=== PATIENT | female | born 1950 | race Caucasian/White ===

== ENCOUNTER 2017-08-11 22:41 | Emergency (ER) | payer OTHER ==
[~2017-08-11] VITALS: Ht 165.1 cm; Wt 125.0 kg
[~2017-08-11 22:41] MED LIST: CIPR-9 PO; FURO1TAB60 PO; GLIP5TAB8 PO; METO1TAB42 PO; SIMV10TA PO; TRAM50TA PO; ZANT150T2 PO
[2017-08-11 22:44] VITALS: BP 190/112; PULSE 98; RESP 16; TEMP 98.2; O2SAT 97
[2017-08-11 23:17] VITALS: BP 143/67; PULSE 92; RESP 22; O2SAT 99
[2017-08-12 00:13] LABS: AUTOMATED NEUTROPHIL # 8.7 TH/MM3 (1.8-7.7); BASOPHIL % 0.3 % (0.0-2.0); EOSINOPHIL % 0.3 % (0.0-4.0); HEMATOCRIT 36.7 % (35.0-46.0); HEMOGLOBIN 12.3 GM/DL (11.6-15.3); LYMPH % 17.5 % (9.0-44.0); LYMPHOCYTE # 2.1 TH/MM3 (1.0-4.8); MEAN CELL VOLUME 87.6 FL (80.0-100.0); MEAN CORPUSCULAR HEMOGLOBIN 29.3 PG (27.0-34.0); MEAN CORPUSCULAR HGB CONC 33.5 % (32.0-36.0); MEAN PLATELET VOLUME 6.7 FL (7.0-11.0); MONO % 8.7 % (0.0-8.0); NEUT % 73.2 % (16.0-70.0); PLATELET COUNT 326 TH/MM3 (150-450); RED BLOOD COUNT 4.19 MIL/MM3 (4.00-5.30); RED CELL DISTRIBUTION WIDTH 14.3 % (11.6-17.2); WHITE BLOOD COUNT 11.8 TH/MM3 (4.0-11.0)
--- NOTE | 2017-08-12 00:26 | PD ---
HPI Chief Complaint: Syncope/Near-Syncope Time Seen by Provider: 23:42 Travel History International Travel<30 days: No Contact w/Intl Traveler<30days: No Traveled to known affect area: No History of Present Illness HPI 67-year-old female complains of generalized malaise and weakness and syncope. Patient states that the symptoms started several days ago. Patient denies any headache. Patient denies any visual change. Patient denies any neck pain. Patient denies any chest pain or shortness of breath. Patient denies abdominal pain. Patient denies any focal weakness or numbness of extremity. Patient denies any history of TIA or CVA. Patient lives in [place]. Patient states that she visited emergency room in [facility] in the past. Patient states that she has history of internal bleeding in the past. Patient states that she was on blood thinner including Coumadin until about 2 weeks ago. PFSH Past Medical History Cardiovascular Problems: Yes (CHF) Diabetes: Yes Patient Takes Glucophage: No Diminished Hearing: No Hypertension: Yes Tetanus Vaccination: Unknown Influenza Vaccination: No Past Surgical History Section: Yes (X2) Cholecystectomy: Yes Social History Alcohol Use: No Tobacco Use: No Substance Use: No Allergies-Medications (Allergen,Severity, Reaction): Coded Allergies: divalproex sodium (Unverified Allergy, Severe, SWELLING, 08/11/17) hydromorphone (Unverified Allergy, Severe, Anaphylaxis, 08/11/17) lithium (Unverified Allergy, Severe, EDEMA, 08/11/17) morphine (Unverified Allergy, Severe, Anaphylaxis, 08/11/17) risperidone (Unverified Allergy, Severe, Swelling, 08/11/17) Reported Meds & Prescriptions Reported Meds & Active Scripts Active Tramadol (Tramadol HCl) 50 Mg Tab 50 Mg PO Q6H PRN Reported Glipizide 5 Mg Tab 5 Mg PO BIDAC Take 30 minutes before a meal Metoprolol Succinate ER 24 HR (Metoprolol Succinate) 25 Mg Tab 25 Mg PO DAILY Zantac (Ranitidine HCl) 150 Mg Tab 150 Mg PO BID Simvastatin 10 Mg Tab 10 Mg PO DAILY Lasix (Furosemide) 40 Mg Tab 40 Mg PO DAILY Review of Systems General / Constitutional: No: Fever Eyes: No: Visual changes HENT: No: Headaches Cardiovascular: No: Chest Pain or Discomfort Respiratory: No: Shortness of Breath Gastrointestinal: No: Abdominal Pain Genitourinary: No: Dysuria Musculoskeletal: No: Pain Skin: No Rash Neurologic: No: Weakness Psychiatric: No: Depression Endocrine: No: Polydipsia Hematologic/Lymphatic: No: Easy Bruising Physical Exam Narrative GENERAL: Well-nourished, well-developed patient. SKIN: Focused skin assessment warm/dry. HEAD: Normocephalic. EYES: No scleral icterus. No injection or drainage. NECK: Supple, trachea midline. No JVD or lymphadenopathy. CARDIOVASCULAR: Regular rate and rhythm without murmurs, gallops, or rubs. RESPIRATORY: Breath sounds equal bilaterally. No accessory muscle use. GASTROINTESTINAL: Abdomen soft, non-tender, nondistended. MUSCULOSKELETAL: No cyanosis, or edema. BACK: Nontender without obvious deformity. No CVA tenderness. Neurologic exam normal. Data Data Last Documented VS Vital Signs Date Time Temp Pulse Resp B/P (MAP) Pulse Ox O2 Delivery O2 Flow Rate FiO2 08/12/17 02:03 89 20 136/68 (90) 99 Room Air 08/11/17 22:44 98.2 Orders Orders Electrocardiogram (08/11/17 23:42) Complete Blood Count With Diff (08/11/17 23:42) Comprehensive Metabolic Panel (08/11/17 23:42) Prothrombin Time / Inr (Pt) (08/11/17 23:42) Act Partial Throm Time (Ptt) (08/11/17 23:42) Chest, Single Ap (08/11/17 23:42) Iv Access Insert/Monitor (08/11/17 23:42) Ecg Monitoring (08/11/17 23:42) Oximetry (08/11/17 23:42) Urinalysis - C+S If Indicated (08/11/17 23:42) Us Leg Venous Doppler Bilat (08/12/17 23:42) Ed Discharge Order (08/12/17 03:20) Labs Laboratory Tests Test 08/12/17 00:03 White Blood Count 11.8 TH/MM3 Red Blood Count 4.19 MIL/MM3 Hemoglobin 12.3 GM/DL Hematocrit 36.7 % Mean Corpuscular Volume 87.6 FL Mean Corpuscular Hemoglobin 29.3 PG Mean Corpuscular Hemoglobin Concent 33.5 % Red Cell Distribution Width 14.3 % Platelet Count 326 TH/MM3 Mean Platelet Volume 6.7 FL Neutrophils (%) (Auto) 73.2 % Lymphocytes (%) (Auto) 17.5 % Monocytes (%) (Auto) 8.7 % Eosinophils (%) (Auto) 0.3 % Basophils (%) (Auto) 0.3 % Neutrophils # (Auto) 8.7 TH/MM3 Lymphocytes # (Auto) 2.1 TH/MM3 Monocytes # (Auto) 1.0 TH/MM3 Eosinophils # (Auto) 0.0 TH/MM3 Basophils # (Auto) 0.0 TH/MM3 CBC Comment DIFF FINAL Differential Comment Prothrombin Time 51.3 SEC Prothromb Time International Ratio 5.1 RATIO Activated Partial Thromboplast Time 50.7 SEC Blood Urea Nitrogen 16 MG/DL Creatinine 1.28 MG/DL Random Glucose 128 MG/DL Total Protein 8.0 GM/DL Albumin 3.6 GM/DL Calcium Level 9.2 MG/DL Alkaline Phosphatase 98 U/L Aspartate Amino Transf (AST/SGOT) 24 U/L Alanine Aminotransferase (ALT/SGPT) 26 U/L Total Bilirubin 0.3 MG/DL Sodium Level 144 MEQ/L Potassium Level 3.8 MEQ/L Chloride Level 108 MEQ/L Carbon Dioxide Level 28.8 MEQ/L Anion Gap 7 MEQ/L Estimat Glomerular Filtration Rate 42 ML/MIN [facility] Medical Decision Making Medical Screen Exam Complete: Yes Emergency Medical Condition: Yes Medical Record Reviewed: Yes Interpretation(s) Last Impressions Lower Extremity Ultrasound 08/12/172 Signed Impressions: Service Date/Time: Saturday, August 12, 2017 01:20 - CONCLUSION: Normal examination. Ernie Cardozo Jr., MD Chest X-Ray 08/11/172 Signed Impressions: Service Date/Time: Friday, August 11, 2017 23:56 - CONCLUSION: No acute disease. Ernie Cardozo Jr., MD 3:13 AM. CBC within normal limit. Creatinine 1.28. GFR 42. INR 5.1. Differential Diagnosis Differential diagnosis including vasovagal reaction, dehydration, electrolyte imbalance, viral syndrome, UTI, DVT, PE. Narrative Course 67-year-old female with generalized malaise and weakness and frequent syncope episodes. Patient has history of blood clots of unknown area of the body. Patient was on blood thinner until recently. Patient has been to several Hospital recently. Diagnosis Primary Impression: Generalized weakness Additional Impressions: Hypercoagulable state Syncope Patient Instructions: General Instructions Additional Instructions: No anticoagulation for now. Follow-up local physician for PT/INR check. Follow -up with local physician. Return if worse. Med/Other Pt SpecificInfo: Existing Med Changed Disposition: 01 DISCHARGE HOME Condition: Stable Jose Wolf MD Aug 12, 2017 00:26
[2017-08-12 00:27] LABS: INTERNATIONAL NORMALIZED RATIO 5.1 RATIO; PROTHROMBIN TIME - PATIENT 51.3 SEC (9.8-11.6)
[2017-08-12 00:29] LABS: ALKALINE PHOSPHATASE 98 U/L (45-117); TOTAL BILIRUBIN ADULT 0.3 MG/DL (0.2-1.0)
[2017-08-12 00:42] LABS: ALBUMIN 3.6 GM/DL (3.4-5.0); ALT (GPT) 26 U/L (10-53); AST (GOT) 24 U/L (15-37); BICARBONATE 28.8 MEQ/L (21.0-32.0); BLOOD UREA NITROGEN 16 MG/DL (7-18); CALCIUM 9.2 MG/DL (8.5-10.1); CHLORIDE 108 MEQ/L (98-107); CREATININE 1.28 MG/DL (0.50-1.00); GLOMERULAR FILTRATION RATE 42 ML/MIN (>89); GLUCOSE,RANDOM 128 MG/DL (74-106); SODIUM (NA) 144 MEQ/L (136-145)
--- NOTE | 2017-08-12 00:47 | RADRPT ---
EXAM DATE/TIME: 08/11/2017 23:56 [facility] COMPARISON: No previous studies available for comparison. INDICATIONS : Shortness of breath. MEDICAL HISTORY : Hypertension. Congestive heart failure. Diabetes mellitus type II. SURGICAL HISTORY : Cholecystectomy. section. ENCOUNTER: Initial ACUITY: 1 day PAIN SCORE: 0/10 LOCATION: Bilateral chest FINDINGS: A single view of the chest demonstrates the lungs to be symmetrically aerated without evidence of mas s, infiltrate or effusion. The cardiomediastinal contours are unremarkable. Osseous structures are intact. CONCLUSION: No acute disease. Ernie Cardozo Jr., MD on August 12, 2017 at 0:45 Board Certified Radiologist. This report was verified electronically.
[2017-08-12 00:50] VITALS: BP 125/61; PULSE 82; RESP 24; O2SAT 92
[2017-08-12 02:03] VITALS: BP 136/68; PULSE 89; RESP 20; O2SAT 99
--- NOTE | 2017-08-12 02:05 | RADRPT ---
EXAM DATE/TIME: 08/12/2017 01:20 [facility] COMPARISON: No previous studies available for comparison. INDICATIONS : Bilateral leg swelling. MEDICAL HISTORY : Hypertension. Congestive heart failure. Diabetes. SURGICAL HISTORY : Cholecystectomy. section. ENCOUNTER: Initial ACUITY: 3 days PAIN SCORE: 2/10 LOCATION: Bilateral legs. TECHNIQUE: Venous ultrasound of the left and right leg was performed from the inguinal ligament to the proximal calf. Real-time, color Doppler and spectral tracing, compression and augmentation techniques were us ed. FINDINGS: RIGHT LEG: There is normal compressibility of the deep venous system from the inguinal region to the proximal ca lf. No echogenic clot is seen in the lumen of the common femoral, femoral, popliteal, and posterior tibial veins. There is a normal response of the venous system to proximal and distal augmentation an d respiration. LEFT LEG: There is normal compressibility of the deep venous system from the inguinal region to the proximal ca lf. No echogenic clot is seen in the lumen of the common femoral, femoral, popliteal, and posterior tibial veins. There is a normal response of the venous system to proximal and distal augmentation an d respiration. CONCLUSION: Normal examination. Ernie Cardozo Jr., MD on August 12, 2017 at 2:03 Board Certified Radiologist. This report was verified electronically.
[2017-08-12 04:55] VITALS: BP 138/78; PULSE 79; RESP 18; O2SAT 100
[2017-08-12 04:56] VITALS: O2SAT 100
--- NOTE | 2017-08-12 09:13 | EKG ---
Date Performed: 08/11/2017 Time Performed: 23:23:37 PTAGE: 67 years EKG: Sinus rhythm WITH Premature atrial contractions NONSPECIFIC T-WAVE ABNORMALITY BORDERLINE ECG Compared to prior e lectrocardiogram, Premature atrial contractions are present. PREVIOUS TRACING : 02/14/2007 13.24 DOCTOR: Jason Coelho Interpretating Date/Time 08/12/2017 09:13:05
== END 2017-08-12 04:57 | disposition home or self-care (01) ==
LOC: NEPE 22:41
DX: R53.1 Weakness (principal); D68.59 Other primary thrombophilia; R55 Syncope and collapse; R94.31 Abnormal electrocardiogram [ECG] [EKG]; I11.0 Hypertensive heart disease with heart failure; E11.9 Type 2 diabetes mellitus without complications; R53.81 Other malaise
CPT/HCPCS: 71010; 80053; 85025; 85610; 85730; 93005; 93970

== ENCOUNTER 2017-08-15 16:29 | Inpatient (IN) | payer OTHER, MEDICARE ==
[~2017-08-15] VITALS: Ht 162.6 cm; Wt 127.2 kg
[2017-08-15] MEDS ORDERED: SODIUM CHLOR 0.9% 1000 ML INJ 1,000 ML IV ONE (19:59)
[2017-08-15 20:00] VITALS: BP 148/72; PULSE 118; RESP 20; TEMP 99.4; O2SAT 98
[2017-08-15] MEDS ORDERED: SODIUM CHLORIDE 0.9% FLUSH 10 ML FLUSH IVF PRN (20:00)
--- NOTE | 2017-08-15 20:01 | PD ---
HPI Chief Complaint: Fall Time Seen by Provider: 19:56 Travel History International Travel<30 days: No Contact w/Intl Traveler<30days: No Traveled to known affect area: No History of Present Illness HPI 67-year-old female with history of CHF, hypertension, diabetes, presents emergency department for evaluation. Per patient report, she slid herself out of bed, feeling like she was going to fall, and has been on the floor for the last 3 days. She reports feeling very dry and is requesting something to drink. She does report left shoulder pain with a history of left shoulder rotator cuff injury. No new injury. She denies any chest pain or tightness. No difficulty breathing. No abdominal pain, nausea, vomiting. States she has not been recently ill. In review of the record, patient was seen here on August 11 for generalized weakness. She was discharged home at the time. She has no other symptoms to report. PFSH Past Medical History Cardiovascular Problems: Yes (CHF) Diabetes: Yes Diminished Hearing: No Hypertension: Yes Past Surgical History Section: Yes (X2) Cholecystectomy: Yes Social History Alcohol Use: No Tobacco Use: No Substance Use: No Allergies-Medications (Allergen,Severity, Reaction): Coded Allergies: divalproex sodium (Unverified Allergy, Severe, SWELLING, 08/15/17) hydromorphone (Unverified Allergy, Severe, Anaphylaxis, 08/15/17) lithium (Unverified Allergy, Severe, EDEMA, 08/15/17) morphine (Unverified Allergy, Severe, Anaphylaxis, 08/15/17) risperidone (Unverified Allergy, Severe, Swelling, 08/15/17) Reported Meds & Prescriptions Reported Meds & Active Scripts Active Tramadol (Tramadol HCl) 50 Mg Tab 50 Mg PO Q6H PRN Reported Glipizide 5 Mg Tab 5 Mg PO BIDAC Take 30 minutes before a meal Metoprolol Succinate ER 24 HR (Metoprolol Succinate) 25 Mg Tab 25 Mg PO DAILY Zantac (Ranitidine HCl) 150 Mg Tab 150 Mg PO BID Simvastatin 10 Mg Tab 10 Mg PO DAILY Lasix (Furosemide) 40 Mg Tab 40 Mg PO DAILY Review of Systems Except as stated in HPI: all other systems reviewed are Neg Physical Exam Narrative GENERAL: Unkempt, Obese female patient, lying in bed, in no acute distress. SKIN: Focused skin assessment warm/dry. Reddened skin in the inguinal folds. HEAD: Atraumatic. Normocephalic. EYES: Pupils equal and round. No scleral icterus. No injection or drainage. ENT: No nasal bleeding or discharge. Mucous membranes pink but dry appearing. NECK: Trachea midline. No JVD. CARDIOVASCULAR: Tachycardic rate and rhythm. No murmur appreciated. RESPIRATORY: No accessory muscle use. Diminished, likely due to girth. Breath sounds equal bilaterally. GASTROINTESTINAL: Abdomen rotund, soft, nondistended. Hepatic and splenic margins not palpable. MUSCULOSKELETAL: No obvious deformities. No clubbing. No cyanosis. NEUROLOGICAL: Awake and alert. No obvious cranial nerve deficits. Motor grossly within normal limits. Normal speech. Data Data Last Documented VS Vital Signs Date Time Temp Pulse Resp B/P (MAP) Pulse Ox O2 Delivery O2 Flow Rate FiO2 08/15/17 20:00 99.4 118 20 148/72 (97) 98 Room Air Orders Orders Electrocardiogram (08/15/17 19:59) Complete Blood Count With Diff (08/15/17 19:59) Comprehensive Metabolic Panel (08/15/17 19:59) Magnesium (Mg) (08/15/17 19:59) Ckmb (Isoenzyme) Profile (08/15/17 19:59) Troponin I (08/15/17 19:59) Act Partial Throm Time (Ptt) (08/15/17 19:59) Prothrombin Time / Inr (Pt) (08/15/17 19:59) Urinalysis - C+S If Indicated (08/15/17 19:59) Chest, Single Ap (08/15/17 19:59) Ct Brain W/O Iv Contrast(Rout) (08/15/17 19:59) Ecg Monitoring (08/15/17 19:59) Iv Access Insert/Monitor (08/15/17 19:59) Oximetry (08/15/17 19:59) Sodium Chloride 0.9% Flush (Ns Flush) (08/15/17 20:00) Sodium Chlor 0.9% 1000 Ml Inj (Ns 1000 M (08/15/17 19:59) Creatine Kinase (Cpk) (08/15/17 19:59) ^ Straight Catheter (08/15/17 20:29) Urine Culture (08/15/17 20:40) Lactic Acid Sepsis Protocol (08/15/17 21:15) Blood Culture (08/15/17 21:15) Sepsis Workup Initiated (08/15/17 ) Cefepime Inj (Maxipime Inj) (08/15/17 21:16) Vancomycin Inj (Vancomycin Inj) (08/15/17 21:16) CKMB (08/15/17 20:25) CKMB% (08/15/17 20:25) Sodium Chlorid 0.9% 500 Ml Inj (Ns 500 M (08/15/17 22:30) Admit Order (Ed Use Only) (08/15/17 23:02) Labs Laboratory Tests Test 08/15/17 20:25 08/15/17 20:40 08/15/17 22:09 White Blood Count 15.0 TH/MM3 Red Blood Count 4.28 MIL/MM3 Hemoglobin 12.9 GM/DL Hematocrit 37.3 % Mean Corpuscular Volume 87.1 FL Mean Corpuscular Hemoglobin 30.2 PG Mean Corpuscular Hemoglobin Concent 34.7 % Red Cell Distribution Width 14.1 % Platelet Count 353 TH/MM3 Mean Platelet Volume 7.0 FL Neutrophils (%) (Auto) 81.3 % Lymphocytes (%) (Auto) 8.5 % Monocytes (%) (Auto) 9.7 % Eosinophils (%) (Auto) 0.1 % Basophils (%) (Auto) 0.4 % Neutrophils # (Auto) 12.2 TH/MM3 Lymphocytes # (Auto) 1.3 TH/MM3 Monocytes # (Auto) 1.5 TH/MM3 Eosinophils # (Auto) 0.0 TH/MM3 Basophils # (Auto) 0.1 TH/MM3 CBC Comment AUTO DIFF Differential Comment AUTO DIFF CONFIRMED Prothrombin Time 19.0 SEC Prothromb Time International Ratio 1.9 RATIO Activated Partial Thromboplast Time 29.9 SEC Blood Urea Nitrogen 19 MG/DL Creatinine 1.03 MG/DL Random Glucose 130 MG/DL Total Protein 7.1 GM/DL Albumin 2.7 GM/DL Calcium Level 8.8 MG/DL Magnesium Level 1.7 MG/DL Alkaline Phosphatase 86 U/L Aspartate Amino Transf (AST/SGOT) 84 U/L Alanine Aminotransferase (ALT/SGPT) 49 U/L Total Bilirubin 0.7 MG/DL Sodium Level 143 MEQ/L Potassium Level 3.2 MEQ/L Chloride Level 106 MEQ/L Carbon Dioxide Level 24.2 MEQ/L Anion Gap 13 MEQ/L Estimat Glomerular Filtration Rate 53 ML/MIN Total Creatine Kinase 2307 U/L Creatine Kinase MB 12.6 NG/ML Creatine Kinase MB % 0.5 % Troponin I 0.02 NG/ML Urine Color YELLOW Urine Turbidity HAZY Urine pH 6.0 Urine Specific [place] 1.020 Urine Protein 100 mg/dL Urine Glucose (UA) NEG mg/dL Urine Ketones 40 mg/dL Urine Occult Blood MOD Urine Nitrite POS Urine Bilirubin NEG Urine Urobilinogen 2.0 MG/DL Urine Leukocyte Esterase LARGE Urine RBC 6 /hpf Urine WBC 156 /hpf Urine WBC Clumps OCC Urine Amorphous Sediment RARE Urine Bacteria MANY /hpf Urine Mucus MOD /lpf Microscopic Urinalysis Comment CULTURE INDICATED Lactic Acid Level 0.9 mmol/L MDM Medical Decision Making Medical Screen Exam Complete: Yes Emergency Medical Condition: Yes Medical Record Reviewed: Yes Differential Diagnosis Sepsis versus UTI versus rhabdo versus electrolyte abnormality versus renal failure versus altered mental status Narrative Course 67-year-old female presents to emergency department for evaluation. Patient reports being on the floor for 3 days. She has no obvious skin breakdown however she does smell strongly of urine and has redness in her inguinal folds. She is tachycardic and appears dry as well. Patient does have history of CHF. She'll be given a liter of normal saline fluid at this time. Lab work is sent for evaluation. CT of the brain will also be ordered. Last Impressions Head CT 08/15/[id number] Signed Impressions: Service Date/Time: August 22:14 - CONCLUSION: Normal examination. Joshua Ayala MD Chest X-Ray 08/15/171958 Signed Impressions: Service Date/Time: August 20:12 - CONCLUSION: No acute disease. Joshua Ayala MD Laboratory Tests Test 08/15/17 20:25 08/15/17 20:40 08/15/17 22:09 White Blood Count 15.0 TH/MM3 Red Blood Count 4.28 MIL/MM3 Hemoglobin 12.9 GM/DL Hematocrit 37.3 % Mean Corpuscular Volume 87.1 FL Mean Corpuscular Hemoglobin 30.2 PG Mean Corpuscular Hemoglobin Concent 34.7 % Red Cell Distribution Width 14.1 % Platelet Count 353 TH/MM3 Mean Platelet Volume 7.0 FL Neutrophils (%) (Auto) 81.3 % Lymphocytes (%) (Auto) 8.5 % Monocytes (%) (Auto) 9.7 % Eosinophils (%) (Auto) 0.1 % Basophils (%) (Auto) 0.4 % Neutrophils # (Auto) 12.2 TH/MM3 Lymphocytes # (Auto) 1.3 TH/MM3 Monocytes # (Auto) 1.5 TH/MM3 Eosinophils # (Auto) 0.0 TH/MM3 Basophils # (Auto) 0.1 TH/MM3 CBC Comment AUTO DIFF Differential Comment AUTO DIFF CONFIRMED Prothrombin Time 19.0 SEC Prothromb Time International Ratio 1.9 RATIO Activated Partial Thromboplast Time 29.9 SEC Blood Urea Nitrogen 19 MG/DL Creatinine 1.03 MG/DL Random Glucose 130 MG/DL Total Protein 7.1 GM/DL Albumin 2.7 GM/DL Calcium Level 8.8 MG/DL Magnesium Level 1.7 MG/DL Alkaline Phosphatase 86 U/L Aspartate Amino Transf (AST/SGOT) 84 U/L Alanine Aminotransferase (ALT/SGPT) 49 U/L Total Bilirubin 0.7 MG/DL Sodium Level 143 MEQ/L Potassium Level 3.2 MEQ/L Chloride Level 106 MEQ/L Carbon Dioxide Level 24.2 MEQ/L Anion Gap 13 MEQ/L Estimat Glomerular Filtration Rate 53 ML/MIN Total Creatine Kinase 2307 U/L Creatine Kinase MB 12.6 NG/ML Creatine Kinase MB % 0.5 % Troponin I 0.02 NG/ML Urine Color YELLOW Urine Turbidity HAZY Urine pH 6.0 Urine Specific [place] 1.020 Urine Protein 100 mg/dL Urine Glucose (UA) NEG mg/dL Urine Ketones 40 mg/dL Urine Occult Blood MOD Urine Nitrite POS Urine Bilirubin NEG Urine Urobilinogen 2.0 MG/DL Urine Leukocyte Esterase LARGE Urine RBC 6 /hpf Urine WBC 156 /hpf Urine WBC Clumps OCC Urine Amorphous Sediment RARE Urine Bacteria MANY /hpf Urine Mucus MOD /lpf Microscopic Urinalysis Comment CULTURE INDICATED Lactic Acid Level 0.9 mmol/L I discussed the patient with my attending physician who is also assessed the patient. Patient is given cefepime and vancomycin. Sepsis protocol is initiated however she will not be given 30 ml/kg IV normal saline bolus due to history of CHF. Discussed the patient with Dr. Serrano. Patient will be admitted to the [facility] hospitalist service. Sepsis Criteria SIRS Criteria (2 or more): Heart rate over 90, WBC > 02769, < 4000 or > 10% bands Sepsis Criteria (SIRS+source): Infect source susp/known Diagnosis Primary Impression: Sepsis Qualified Codes: A41.9 - Sepsis, unspecified organism Additional Impressions: UTI (urinary tract infection) Qualified Codes: N30.01 - Acute cystitis with hematuria Rhabdomyolysis Qualified Codes: M62.82 - Rhabdomyolysis Admitting Information Admitting Physician Requests: Admit Condition: Stable Jenny Delgado Aug 15, 2017 20:00
--- NOTE | 2017-08-15 20:37 | RADRPT ---
EXAM DATE/TIME: 08/15/2017 20:12 [facility] COMPARISON: CHEST SINGLE AP, August 11, 2017, 23:56. INDICATIONS : Palpitations. MEDICAL HISTORY : Hypertension. Congestive heart failure. Diabetes. SURGICAL HISTORY : Cholecystectomy. section. ENCOUNTER: Initial ACUITY: 1 day PAIN SCORE: 0/10 LOCATION: Bilateral chest FINDINGS: A single view of the chest demonstrates the lungs to be symmetrically aerated without evidence of mas s, infiltrate or effusion. The cardiomediastinal contours are unremarkable. Osseous structures are intact. CONCLUSION: No acute disease. Joshua Ayala MD on August 15, 2017 at 20:35 Board Certified Radiologist. This report was verified electronically.
[2017-08-15 20:57] LABS: AUTOMATED NEUTROPHIL # 12.2 TH/MM3 (1.8-7.7); BASOPHIL # 0.1 TH/MM3 (0-0.2); BASOPHIL % 0.4 % (0.0-2.0); EOSINOPHIL % 0.1 % (0.0-4.0); HEMATOCRIT 37.3 % (35.0-46.0); HEMOGLOBIN 12.9 GM/DL (11.6-15.3); LYMPH % 8.5 % (9.0-44.0); LYMPHOCYTE # 1.3 TH/MM3 (1.0-4.8); MEAN CELL VOLUME 87.1 FL (80.0-100.0); MEAN CORPUSCULAR HEMOGLOBIN 30.2 PG (27.0-34.0); MEAN CORPUSCULAR HGB CONC 34.7 % (32.0-36.0); MONO % 9.7 % (0.0-8.0); MONOCYTE # 1.5 TH/MM3 (0-0.9); NEUT % 81.3 % (16.0-70.0); PLATELET COUNT 353 TH/MM3 (150-450); RED BLOOD COUNT 4.28 MIL/MM3 (4.00-5.30); RED CELL DISTRIBUTION WIDTH 14.1 % (11.6-17.2)
[2017-08-15 21:04] LABS: AMORPHOUS SEDIMENT, URINE RARE; BACTERIA, URINE MANY /hpf; BILIRUBIN, URINE NEG (NEG); BLOOD, URINE MOD (NEG); GLUCOSE,URINE NEG (NEG); KETONE, URINE 40 mg/dL (NEG); MUCUS URINE MOD /lpf (OCC); NITRITE,URINE POS (NEG); URINE COLOR YELLOW (YELLW/STRAW); URINE LEUKOCYTE ESTERASE LARGE (NEG); WHITE BLOOD CELL CLUMPS OCC
[2017-08-15 21:15] LABS: ALBUMIN 2.7 GM/DL (3.4-5.0); ALT (GPT) 49 U/L (10-53); AST (GOT) 84 U/L (15-37); BICARBONATE 24.2 MEQ/L (21.0-32.0); BLOOD UREA NITROGEN 19 MG/DL (7-18); CALCIUM 8.8 MG/DL (8.5-10.1); CHLORIDE 106 MEQ/L (98-107); CREATININE 1.03 MG/DL (0.50-1.00); GLOMERULAR FILTRATION RATE 53 ML/MIN (>89); GLUCOSE,RANDOM 130 MG/DL (74-106); MAGNESIUM 1.7 MG/DL (1.5-2.5); SODIUM (NA) 143 MEQ/L (136-145)
[2017-08-15] MEDS ORDERED: CEFEPIME INJ 2,000 MG in SODIUM CHLORIDE 0.9% INJ 100 ML IV STA (21:16)
[2017-08-15] MEDS ORDERED: VANCOMYCIN INJ 1,000 MG in SODIUM CHLOR 0.9% 250 ML INJ 250 ML IV STA (21:16)
[2017-08-15 21:21] LABS: INTERNATIONAL NORMALIZED RATIO 1.9 RATIO
[2017-08-15 21:55] LABS: ALKALINE PHOSPHATASE 86 U/L (45-117); TOTAL BILIRUBIN ADULT 0.7 MG/DL (0.2-1.0); TOTAL PROTEIN 7.1 GM/DL (6.4-8.2); TROPONIN I 0.02 NG/ML (0.02-0.05)
--- NOTE | 2017-08-15 22:21 | RADRPT ---
EXAM DATE/TIME: 08/15/2017 22:14 [facility] COMPARISON: CT BRAIN W/O CONTRAST, July 21, 2016, 23:22. INDICATIONS : Dizziness. RADIATION DOSE: 36.85 CTDIvol (mGy) MEDICAL HISTORY : Hypertension. Congestive heart failure. SURGICAL HISTORY : None. ENCOUNTER: Initial ACUITY: 1 day PAIN SCALE: 0/10 LOCATION: cranial TECHNIQUE: Multiple contiguous axial images were obtained of the head. Using automated exposure control and adj ustment of the mA and/or kV according to patient size, radiation dose was kept as low as reasonably a chievable to obtain optimal diagnostic quality images. DICOM format image data is available electro nically for review and comparison. FINDINGS: CEREBRUM: The ventricles are normal for age. No evidence of midline shift, mass lesion, hemorrhage or acute in farction. No extra-axial fluid collections are seen. POSTERIOR FOSSA: The cerebellum and brainstem are intact. The 4th ventricle is midline. The cerebellopontine angle i s unremarkable. EXTRACRANIAL: The visualized portion of the orbits is intact. SKULL: The calvaria is intact. No evidence of skull fracture. CONCLUSION: Normal examination. Joshua Ayala MD on August 15, 2017 at 22:18 Board Certified Radiologist. This report was verified electronically.
[2017-08-15] MEDS ORDERED: SODIUM CHLORID 0.9% 500 ML INJ 500 ML IV ONE (22:30)
[2017-08-15] MEDS ORDERED: SODIUM CHLORIDE 0.9% FLUSH 10 ML FLUSH IV FLUSH PRN (23:15)
[2017-08-15] MEDS ORDERED: NALOXONE HCL 0.4 MG/ML AMP IV PUSH PRN (23:15)
[2017-08-15] MEDS ORDERED: MAGNESIUM HYDROXIDE SUSP 30 ML CUP PO PRN (23:15)
[2017-08-15] MEDS ORDERED: BISACODYL 10 MG SUPP RECTAL PRN (23:15)
[2017-08-15] MEDS ORDERED: SENNOSIDES 8.6 MG TAB PO PRN (23:15)
[2017-08-15] MEDS ORDERED: POTASSIUM CHLORIDE 20 MEQ CONTROLLED RELEASE TAB PO ONE (23:15)
[2017-08-15] MEDS ORDERED: LACTULOSE SYRUP 20 GM/30 ML CUP PO PRN (23:15)
[2017-08-15] MEDS ORDERED: DEXTROSE 50% IN WATER 50 ML VIAL(D50) IV PUSH PRN (23:15)
[2017-08-15] MEDS ORDERED: ONDANSETRON HCL 4 MG/2 ML VIAL IVP PRN (23:15)
[2017-08-15] MEDS ORDERED: GLUCAGON 1 MG/ML VIAL OTHER PRN (23:15)
[2017-08-15 23:48] VITALS: BP 178/81; PULSE 101; RESP 18; TEMP 98.6; O2SAT 99
[2017-08-15] MEDS: HEPARIN SODIUM - SQ 10,000 UNITS/ML VIAL SQ SCH (23:55)
[2017-08-16] VITALS (13 sets, daily range): BP systolic 107–143; BP diastolic 54–65; PULSE 87–109; RESP 16–21; TEMP 97.5–98.9; O2SAT 96–99
[2017-08-16] MEDS: SODIUM CHLOR 0.9% 1000 ML INJ 1,000 ML IV SCH ×2 (00:16→09:30)
[2017-08-16] MEDS: INSULIN ASPART SUPPLEMENTAL SCALE SQ SCH ×4 (08:00→21:00)
[2017-08-16 08:03] LABS: AUTOMATED NEUTROPHIL # 7.7 TH/MM3 (1.8-7.7); BASOPHIL % 0.4 % (0.0-2.0); EOSINOPHIL # 0.1 TH/MM3 (0-0.4); EOSINOPHIL % 0.7 % (0.0-4.0); HEMATOCRIT 32.3 % (35.0-46.0); HEMOGLOBIN 10.9 GM/DL (11.6-15.3); LYMPH % 18.7 % (9.0-44.0); LYMPHOCYTE # 2.1 TH/MM3 (1.0-4.8); MEAN CELL VOLUME 87.4 FL (80.0-100.0); MEAN CORPUSCULAR HEMOGLOBIN 29.5 PG (27.0-34.0); MEAN CORPUSCULAR HGB CONC 33.7 % (32.0-36.0); MEAN PLATELET VOLUME 7.2 FL (7.0-11.0); MONO % 12.6 % (0.0-8.0); MONOCYTE # 1.4 TH/MM3 (0-0.9); NEUT % 67.6 % (16.0-70.0); PLATELET COUNT 309 TH/MM3 (150-450); RED BLOOD COUNT 3.69 MIL/MM3 (4.00-5.30); RED CELL DISTRIBUTION WIDTH 14.2 % (11.6-17.2); WHITE BLOOD COUNT 11.4 TH/MM3 (4.0-11.0)
[2017-08-16 08:06] LABS: BICARBONATE 23.9 MEQ/L (21.0-32.0); CALCIUM 7.7 MG/DL (8.5-10.1); CREATININE 1.02 MG/DL (0.50-1.00)
[2017-08-16] MEDS: PRAVASTATIN SOD 20 MG TAB PO SCH (09:17)
[2017-08-16] MEDS: cefTRIAXone INJ 1,000 MG in SODIUM CHLORIDE 0.9% INJ 100 ML IV SCH (09:17)
[2017-08-16] MEDS: DOCUSATE SODIUM 50 MG/SENNA 8.6 MG TAB PO SCH ×2 (09:17→21:00)
[2017-08-16] MEDS: METOPROLOL SUCCINATE 25 MG EXTENDED RELEASE TAB PO SCH (09:18)
[2017-08-16] MEDS: FAMOTIDINE 20 MG TAB PO SCH (09:18)
[2017-08-16] MEDS: FUROSEMIDE 40 MG TAB PO SCH (09:18)
[2017-08-16] MEDS: SODIUM CHLORIDE 0.9% FLUSH 10 ML FLUSH IV FLUSH SCH ×2 (09:31→21:00)
[2017-08-16] MEDS: HEPARIN SODIUM - SQ 10,000 UNITS/ML VIAL SQ SCH (12:28)
--- NOTE | 2017-08-16 14:30 | HHI.HP ---
[facility] Luis Greenfield MD Admission Diagnosis sepsis; uti; rhabdomyolysis Diagnoses: Chief Complaint: Generalized weakness, could not get up from the floor Travel History International Travel<30 Days: No Contact w/Intl Traveler <30 Da: No Traveled to Known Affected Are: No History of Present Illness The patient is a very poor historian and very tangential during the interview. She is a 67-year-old female with a medical history significant for CHF, hypertension, diabetes who reports that she slid herself out of bed and has been on the floor for the past 3 days, unable to get up. Patient reports chronic left shoulder pain from her previous rotator cuff injury. On further discussion of reported history of CHF, she denies this but states she has not been taking Lasix. She also admits that she's been eating a lot of "junk food" . She does not watch her fluid intake. She admits to urinary frequency and dysuria. Evaluation in the emergency room reveals the patient meet criteria for sepsis secondary to UTI. Patient reports she is not going to return home as she believes it is unsafe for her to leave there. Review of Systems Constitutional: COMPLAINS OF: Weight gain, DENIES: Fever Respiratory: DENIES: Cough, Shortness of breath Cardiovascular: DENIES: Chest pain, Palpitations Gastrointestinal: DENIES: Nausea, Vomiting Genitourinary: COMPLAINS OF: Urinary frequency, Dysuria Musculoskeletal: COMPLAINS OF: Joint pain Neurologic: COMPLAINS OF: Poor Balance Except as stated in HPI: all other systems reviewed are Neg Past Family Social History Past Medical History Reported history of CHF which patient denies, however she is on Lasix Hypertension Diabetes Chronic left shoulder pain secondary to reported old rotator cuff injury. Past Surgical History Cholecystectomy Reported Medications Reported Meds & Active Scripts Active Tramadol (Tramadol HCl) 50 Mg Tab 50 Mg PO Q6H PRN Reported Glipizide 5 Mg Tab 5 Mg PO BIDAC Take 30 minutes before a meal Metoprolol Succinate ER 24 HR (Metoprolol Succinate) 25 Mg Tab 25 Mg PO DAILY Zantac (Ranitidine HCl) 150 Mg Tab 150 Mg PO BID Simvastatin 10 Mg Tab 10 Mg PO DAILY Lasix (Furosemide) 40 Mg Tab 40 Mg PO DAILY Allergies: Coded Allergies: divalproex sodium (Unverified Allergy, Severe, SWELLING, 08/15/17) hydromorphone (Unverified Allergy, Severe, Anaphylaxis, 08/15/17) lithium (Unverified Allergy, Severe, EDEMA, 08/15/17) morphine (Unverified Allergy, Severe, Anaphylaxis, 08/15/17) risperidone (Unverified Allergy, Severe, Swelling, 08/15/17) Family History Reviewed and is found to be noncontributory. Social History Patient lives by herself in [place], [place] She denies tobacco, alcohol, or illicit drug use Physical Exam Vital Signs Vital Signs Date Time Temp Pulse Resp B/P (MAP) Pulse Ox O2 Delivery O2 Flow Rate FiO2 08/16/17 12:08 98.9 87 20 107/54 (71) 97 08/16/17 12:00 90 08/16/17 08:30 94 08/16/17 08:08 98.3 99 20 139/60 (86) 98 08/16/17 04:14 89 08/16/17 04:00 98.2 95 18 138/63 (88) 98 08/16/17 03:15 98.6 93 18 143/64 (90) 96 08/16/17 02:40 08/16/17 02:20 109 18 99 Room Air 08/15/17 23:48 98.6 101 18 178/81 (113) 99 Room Air 08/15/17 20:00 99.4 118 20 148/72 (97) 98 Room Air Physical Exam GENERAL: Morbidly obese female, easily tearful. SKIN: No rashes, ecchymoses or lesions. Cool and dry. HEAD: Atraumatic. Normocephalic. No temporal or scalp tenderness. EYES: Pupils equal round and reactive. Extraocular motions intact. No scleral icterus. No injection or drainage. ENT: Nose without drainage. Throat without erythema, tonsillar hypertrophy or exudate. Uvula midline. Airway patent. NECK: Trachea midline. No JVD or lymphadenopathy. Supple, nontender, no meningeal signs. CARDIOVASCULAR: Regular rate and rhythm without murmurs, gallops, or rubs. RESPIRATORY: Clear to auscultation. Breath sounds equal bilaterally. No wheezes , rales, or rhonchi. GASTROINTESTINAL: Abdomen soft, non-tender, nondistended. No hepato-splenomegaly , or palpable masses. No guarding. MUSCULOSKELETAL: Bilateral lower extremity with nonpitting edema NEUROLOGICAL: Awake and alert. Cranial nerves II through XII intact. Patient refused to let me examine her left shoulder secondary to pain. Generalized weakness. Laboratory Laboratory Tests Test 08/15/17 20:25 08/15/17 20:40 08/15/17 22:09 08/16/17 06:15 White Blood Count 15.0 11.4 Red Blood Count 4.28 3.69 Hemoglobin 12.9 10.9 Hematocrit 37.3 32.3 Mean Corpuscular Volume 87.1 87.4 Mean Corpuscular Hemoglobin 30.2 29.5 Mean Corpuscular Hemoglobin Concent 34.7 33.7 Red Cell Distribution Width 14.1 14.2 Platelet Count 353 309 Mean Platelet Volume 7.0 7.2 Neutrophils (%) (Auto) 81.3 67.6 Lymphocytes (%) (Auto) 8.5 18.7 Monocytes (%) (Auto) 9.7 12.6 Eosinophils (%) (Auto) 0.1 0.7 Basophils (%) (Auto) 0.4 0.4 Neutrophils # (Auto) 12.2 7.7 Lymphocytes # (Auto) 1.3 2.1 Monocytes # (Auto) 1.5 1.4 Eosinophils # (Auto) 0.0 0.1 Basophils # (Auto) 0.1 0.0 CBC Comment AUTO DIFF DIFF FINAL Differential Comment AUTO DIFF CONFIRMED Prothrombin Time 19.0 Prothromb Time International Ratio 1.9 Activated Partial Thromboplast Time 29.9 Blood Urea Nitrogen 19 23 Creatinine 1.03 1.02 Random Glucose 130 86 Total Protein 7.1 Albumin 2.7 Calcium Level 8.8 7.7 Magnesium Level 1.7 Alkaline Phosphatase 86 Aspartate Amino Transf (AST/SGOT) 84 Alanine Aminotransferase (ALT/SGPT) 49 Total Bilirubin 0.7 Sodium Level 143 144 Potassium Level 3.2 3.3 Chloride Level 106 110 Carbon Dioxide Level 24.2 23.9 Anion Gap 13 10 Estimat Glomerular Filtration Rate 53 54 Total Creatine Kinase 7 2002 Creatine Kinase MB 12.6 7.7 Creatine Kinase MB % 0.5 0.4 Troponin I 0.02 Urine Color YELLOW Urine Turbidity HAZY Urine pH 6.0 Urine Specific [place] 1.020 Urine Protein 100 Urine Glucose (UA) NEG Urine Ketones 40 Urine Occult Blood MOD Urine Nitrite POS Urine Bilirubin NEG Urine Urobilinogen 2.0 Urine Leukocyte Esterase LARGE Urine RBC 6 Urine WBC 156 Urine WBC Clumps OCC Urine Amorphous Sediment RARE Urine Bacteria MANY Urine Mucus MOD Microscopic Urinalysis Comment CULTURE INDICATED Lactic Acid Level 0.9 Hematology Comments Date/Time Source Procedure Growth Status 08/15/17 22:09 Blood Peripheral Aerobic Blood Culture - Preliminary NO GROWTH IN 1 DAY Resulted 08/15/17 22:09 Blood Peripheral Anaerobic Blood Culture - Preliminary NO GROWTH IN 1 DAY Resulted 08/15/17 20:40 Urine Random Urine Urine Culture - Preliminary Gram Negative Deon Resulted Result Diagram: 08/16/1761408/16/17614 Imaging Last Impressions Head CT 08/15/171958 Signed Impressions: Service Date/Time: August 22:14 - CONCLUSION: Normal examination. Joshua Ayala MD Chest X-Ray 08/15/171958 Signed Impressions: Service Date/Time: August 20:12 - CONCLUSION: No acute disease. Joshua Ayala MD Caprini VTE Risk Assessment Jerryrini VTE Risk Assessment: Mod/High Risk (score >= 2) Caprini Risk Assessment Model Point Value = 1 Point Value = 2 Point Value = 3 Point Value = 5 Age 41-60 Minor surgery BMI > 25 kg/m2 Swollen legs Varicose veins or History of unexplained or recurrent spontaneous Oral contraceptives or hormone replacement Sepsis (< 1 month) Serious lung disease, including pneumonia (< 1 month) Abnormal pulmonary function Acute myocardial infarction Congestive heart failure (< 1 month) History of inflammatory bowel disease Medical patient at bed rest Age 61-74 Arthroscopic surgery Major open surgery (> 45 min) Laparoscopic surgery (> 45 min) Malignancy Confined to bed (> 72 hours) Immobilizing plaster cast Central venous access Age >= 75 History of VTE Family history of VTE Factor V Leiden Prothrombin [id number] Lupus anticoagulant Anticardiolipin antibodies Elevated serum homocysteine Heparin-induced thrombocytopenia Other congenital or acquired thrombophilia Stroke (< 1 month) Elective arthroplasty Hip, pelvis, or leg fracture Acute spinal cord injury (< 1 month) Prophylaxis Regimen Total Risk Factor Score Risk Level Prophylaxis Regimen 0-1 Low Early ambulation 2 Moderate Order ONE of the following: *Sequential Compression Device (SCD) *Heparin 5000 units SQ BID 3-4 Higher Order ONE of the following medications: *Heparin 5000 units SQ TID *Enoxaparin/Lovenox 40 mg SQ daily (WT < 150 kg, CrCl > 30 mL/min) *Enoxaparin/Lovenox 30 mg SQ daily (WT < 150 kg, CrCl > 10-29 mL/min) *Enoxaparin/Lovenox 30 mg SQ BID (WT < 150 kg, CrCl > 30 mL/min) AND/OR *Sequential Compression Device (SCD) 5 or more Highest Order ONE of the following medications: *Heparin 5000 units SQ TID (Preferred with Epidurals) *Enoxaparin/Lovenox 40 mg SQ daily (WT < 150 kg, CrCl > 30 mL/min) *Enoxaparin/Lovenox 30 mg SQ daily (WT < 150 kg, CrCl > 10-29 mL/min) *Enoxaparin/Lovenox 30 mg SQ BID (WT < 150 kg, CrCl > 30 mL/min) AND *Sequential Compression Device (SCD) Assessment and Plan Problem List: (1) Chronic left shoulder pain ICD Code: M25.512 - Pain in left shoulder; G89.29 - Other chronic pain (2) Hypertension ICD Code: I10 - Essential (primary) hypertension (3) Diabetes ICD Code: E11.9 - Type 2 diabetes mellitus without complications (4) Sepsis secondary to UTI ICD Code: A41.9 - Sepsis, unspecified organism; N39.0 - Urinary tract infection , site not specified (5) Morbid obesity ICD Code: E66.01 - Morbid (severe) obesity due to excess calories (6) Rhabdomyolysis ICD Code: M62.82 - Rhabdomyolysis Status: Acute Assessment and Plan 67-year-old female admitted for sepsis secondary to UTI, debility. Sepsis secondary to UTI: - Continue Rocephin IV - Follow urine and blood cultures CHF: Unknown type. - No overt respiratory symptoms or fluid overload but if this is worsening, it may contribute to debility. - Obtain BNP, 2-D echocardiogram. - Continue metoprolol, Lasix Debility: - Likely secondary to morbid obesity and sepsis - Physical therapy to evaluate. May benefit from group home facility placement versus long-term. Rhabdomyolysis: - Improving. Status post IV fluid. Patient is taking adequate oral hydration. Discontinue IV fluid Hypertension: Continue home dose antihypertensives. Chronic left shoulder pain: Patient reports a history of rotator cuff tear. - Advise outpatient follow-up - Pain control GI prophylaxis: Stool softener PRN constipation. DVT PPx: Heparin Code Status Full Physician Certification 2 Midnight Certification Type: Admission for Inpatient Services Order for Inpatient Services The services are ordered in accordance with Medicare regulations or non- Medicare payer requirements, as applicable. In the case of services not specified as inpatient-only, they are appropriately provided as inpatient services in accordance with the 2-midnight benchmark. Estimated LOS (days): 3 days is the estimated time the patient will need to remain in the hospital, assuming treatment plan goals are met and no additional complications. Post-Hospital Plan: SNF Problem Qualifiers (1) Rhabdomyolysis: Qualified Codes: M62.82 - Rhabdomyolysis Van Leon MD Aug 16, 2017 14:30
[2017-08-16] MEDS: NYSTATIN 100,000 U/GM PWD 15 GM BTL TOPICAL SCH (21:00)
--- NOTE | 2017-08-16 22:30 | EKG ---
Date Performed: 08/15/2017 Time Performed: 21:26:30 PTAGE: 67 years EKG: SINUS TACHYCARDIA NONSPECIFIC T-WAVE ABNORMALITY ABNORMAL RHYTHM ECG PREVIOUS TRACING : 08/11/2017 23.23 Compared to prior tracing no significant change DOCTOR: Jim Bañuelos Interpretating Date/Time 08/16/2017 22:29:33
[2017-08-17] VITALS (10 sets, daily range): BP systolic 125–145; BP diastolic 56–65; PULSE 18–92; RESP 18–21; TEMP 97.2–98.2; O2SAT 96–98
[2017-08-17] MEDS: HEPARIN SODIUM - SQ 10,000 UNITS/ML VIAL SQ SCH ×3 (00:04→23:03)
[2017-08-17] MEDS: ACETAMINOPHEN 325 MG TAB PO PRN ×3 (00:05→17:47)
[2017-08-17] MEDS: INSULIN ASPART SUPPLEMENTAL SCALE SQ SCH ×4 (08:00→20:53)
[2017-08-17] MEDS: cefTRIAXone INJ 1,000 MG in SODIUM CHLORIDE 0.9% INJ 100 ML IV SCH (08:52)
[2017-08-17] MEDS: PRAVASTATIN SOD 20 MG TAB PO SCH (08:52)
[2017-08-17] MEDS: FUROSEMIDE 40 MG TAB PO SCH (08:52)
[2017-08-17] MEDS: METOPROLOL SUCCINATE 25 MG EXTENDED RELEASE TAB PO SCH (08:52)
[2017-08-17] MEDS: FAMOTIDINE 20 MG TAB PO SCH (08:52)
[2017-08-17] MEDS: DOCUSATE SODIUM 50 MG/SENNA 8.6 MG TAB PO SCH (08:52)
[2017-08-17] MEDS: SODIUM CHLORIDE 0.9% FLUSH 10 ML FLUSH IV FLUSH SCH ×2 (08:53→20:50)
[2017-08-17] MEDS: NYSTATIN 100,000 U/GM PWD 15 GM BTL TOPICAL SCH ×2 (08:53→20:50)
[2017-08-17 10:53] LABS: HEMATOCRIT 31.6 % (35.0-46.0); HEMOGLOBIN 10.8 GM/DL (11.6-15.3); MEAN CELL VOLUME 88.1 FL (80.0-100.0); MEAN CORPUSCULAR HEMOGLOBIN 30.1 PG (27.0-34.0); MEAN CORPUSCULAR HGB CONC 34.2 % (32.0-36.0); MEAN PLATELET VOLUME 7.1 FL (7.0-11.0); PLATELET COUNT 311 TH/MM3 (150-450); RED BLOOD COUNT 3.59 MIL/MM3 (4.00-5.30); RED CELL DISTRIBUTION WIDTH 14.1 % (11.6-17.2); WHITE BLOOD COUNT 7.4 TH/MM3 (4.0-11.0)
[2017-08-17 11:17] LABS: BICARBONATE 24.6 MEQ/L (21.0-32.0); CALCIUM 8.1 MG/DL (8.5-10.1); CREATININE 1.07 MG/DL (0.50-1.00)
--- NOTE | 2017-08-17 15:43 | HHI.PR ---
Subjective Remarks Patient reports persistent and worsening left shoulder pain. She states she cannot recall whether or not she injured the shoulder again when she fell. Objective Vitals Vital Signs Date Time Temp Pulse Resp B/P (MAP) Pulse Ox O2 Delivery O2 Flow Rate FiO2 08/17/17 12:50 Room Air 08/17/17 12:06 98.1 92 21 125/56 (79) 96 08/17/17 12:00 85 08/17/17 09:00 Room Air 08/17/17 08:08 98.2 83 20 140/65 (90) 96 08/17/17 08:00 86 08/17/17 06:05 81 08/17/17 04:00 Room Air 08/17/17 00:00 97.6 75 18 131/62 (85) 97 08/17/17 00:00 Room Air 08/16/17 23:43 90 08/16/17 20:01 92 08/16/17 20:00 Room Air 08/16/17 20:00 98.3 93 16 130/65 (86) 98 08/16/17 16:30 95 08/16/17 16:09 97.5 95 21 138/62 (87) 96 I/O 08/16/17 08/16/17 08/16/17 08/17/17 08/17/17 08/17/17 07:00 15:00 23:00 07:00 15:00 23:00 Intake Total 850 ml 2405 ml Balance 850 ml 2405 ml Intake Oral 960 ml IV Total 850 ml 1445 ml # Voids 1 3 # Bowel Movements 1 Result Diagram: 08/17/17 0940 08/17/17 0940 Imaging Last Impressions Head CT 08/15/171958 Signed Impressions: Service Date/Time: August 22:14 - CONCLUSION: Normal examination. Joshua Ayala MD Chest X-Ray 08/15/171958 Signed Impressions: Service Date/Time: August 20:12 - CONCLUSION: No acute disease. Joshua Ayala MD Procedures GENERAL: Morbidly obese female, easily tearful. CARDIOVASCULAR: Regular rate and rhythm without murmurs, gallops, or rubs. RESPIRATORY: Clear to auscultation. Breath sounds equal bilaterally. No wheezes , rales, or rhonchi. GASTROINTESTINAL: Abdomen soft, non-tender. No guarding. MUSCULOSKELETAL: Bilateral lower extremity with nonpitting edema NEUROLOGICAL: Awake and alert. Generalized weakness. A/P Problem List: (1) Chronic left shoulder pain ICD Code: M25.512 - Pain in left shoulder; G89.29 - Other chronic pain (2) Hypertension ICD Code: I10 - Essential (primary) hypertension (3) Diabetes ICD Code: E11.9 - Type 2 diabetes mellitus without complications (4) Sepsis secondary to UTI ICD Code: A41.9 - Sepsis, unspecified organism; N39.0 - Urinary tract infection , site not specified (5) Morbid obesity ICD Code: E66.01 - Morbid (severe) obesity due to excess calories (6) Rhabdomyolysis ICD Code: M62.82 - Rhabdomyolysis Status: Acute Assessment and Plan 67-year-old female admitted for sepsis secondary to UTI, debility. Sepsis secondary to UTI: - Continue Rocephin IV - Follow urine and blood cultures CHF: Unknown type. - No overt respiratory symptoms or fluid overload but if this is worsening, it may contribute to debility. - BNP normal, 2-D echocardiogram pending. - Continue metoprolol, Lasix Debility: - Likely secondary to morbid obesity and sepsis -Physical therapy following. Patient will need SNF placement Rhabdomyolysis: - Improving. Status post IV fluid. Patient is taking adequate oral hydration. Discontinue IV fluid Hypertension: Continue home dose antihypertensives. Chronic left shoulder pain: Patient reports a history of rotator cuff tear. She is reporting worsening pain. Not allowing proper examination. Unclear if she injured her shoulder again. -Obtain shoulder x-ray. - Pain control GI prophylaxis: Stool softener PRN constipation. DVT PPx: Heparin Discharge Planning Probable discharge in 1-2 days to SNF. Problem Qualifiers (1) Rhabdomyolysis: Qualified Codes: M62.82 - Rhabdomyolysis Van Leon MD Aug 17, 2017 15:43
[2017-08-17] MEDS ORDERED: POTASSIUM CHLORIDE 10 MEQ CONTROLLED RELEASE TAB PO ONE (15:45)
--- NOTE | 2017-08-17 17:19 | RADRPT ---
EXAM DATE/TIME: 08/17/2017 16:33 [facility] COMPARISON: No previous studies available for comparison. INDICATIONS : Left shoulder pain post fall 4 days ago. MEDICAL HISTORY : None. SURGICAL HISTORY : None. ENCOUNTER: Initial ACUITY: 4 - 6 days PAIN SCORE: 10/10 LOCATION: Left Shoulder. FINDINGS: There is no evidence of acute fracture. Bony mineralization is normal. Shoulder is in a low position with respect to the lateral right node there is no anterior or posterior dislocation and this may ref lect pseudosubluxation secondary to joint effusion. Subchondral cysts are present in the humeral head . The acromioclavicular joint is intact. CONCLUSION: 1. There is no evidence of acute fracture. 2. Please see above. Frank Curry MD on August 17, 2017 at 17:16 Board Certified Radiologist. This report was verified electronically.
--- NOTE | 2017-08-17 18:48 | ECHRPT ---
Indication: HEART FAILURE CONCLUSIONS The left ventricular systolic function is normal with an estimated ejection fraction in the range of 60-65%. Normal left ventricular size. Wall thickness is normal. No regional wall motion abnormalities are present. Aortic valve sclerosis is present. Mild aortic valve stenosis. There is trace tricuspid valve regurgitation. The estimated pulmonary arterial pressure is 36.6 mmHg. BP: 131 / 62 HR: 81 Rhythm: Sinus MEASUREMENTS (Male / Female) Normal Values Technical Quality:Fair 2D ECHO LV Diastolic Diameter PLAX 4.8 cm 4.2 - 5.9 / 3.9 - 5.3 cm LV Systolic Diameter PLAX 3.0 cm IVS Diastolic Thickness 1.1 cm 0.6 - 1.0 / 0.6 - 0.9 cm LVPW Diastolic Thickness 1.1 cm 0.6 - 1.0 / 0.6 - 0.9 cm LV Relative Wall Thickness 0.5 RV Internal Dim ED PLAX 2.3 cm LVOT Diameter 1.8 cm LA Systolic Diameter LX 3.8 cm 3.0 - 4.0 / 2.7 - 3.8 cm LV Ejection Fraction MOD 4C 66.2 % LV Cardiac Index MOD 4C 3228.5 cm/minm LV Ejection Fraction 4C AL 67.8 % LV Cardiac Index 4C AL 3465.4 cm/minm M-MODE Aortic Root Diameter MM 2.7 cm LA Systolic Diameter MM 3.7 cm LA Ao Ratio MM 1.4 AV Cusp Separation MM 1.7 cm DOPPLER AV Peak Velocity 260.5 cm/s AV Peak Gradient 27.1 mmHg AV Mean Gradient 14.0 mmHg AV Velocity Time Integral 50.8 cm LVOT Peak Velocity 154.0 cm/s LVOT Peak Gradient 9.5 mmHg LVOT Velocity Time Integral 32.1 cm LVOT Cardiac Index 2747.1 cm/minm AV Area Cont Eq vti 1.6 cm AV Area Cont Eq pk 1.5 cm MV Area PHT 3.0 cm Mitral E Point Velocity 123.0 cm/s Mitral A Point Velocity 127.0 cm/s Mitral E to A Ratio 1.0 LV E' Lateral Velocity 6.3 cm/s Mitral E to LV E' Lateral Ratio 19.4 LV E' Septal Velocity 6.1 cm/s Mitral E to LV E' Septal Ratio 20.0 TR Peak Velocity 258.0 cm/s TR Peak Gradient 26.6 mmHg Right Atrial Pressure 10.0 mmHg Pulmonary Artery Systolic Pressu 36.6 mmHg Right Ventricular Systolic Press 36.6 mmHg PV Peak Velocity 197.0 cm/s PV Peak Gradient 15.5 mmHg FINDINGS LEFT VENTRICLE The left ventricular systolic function is normal with an estimated ejection fraction in the range of 60-65%. Normal left ventricular size. Wall thickness is normal. No regional wall motion abnormalities are present. RIGHT VENTRICLE Normal right ventricular size and systolic function. LEFT ATRIUM The left atrial size is normal. RIGHT ATRIUM The right atrial size is normal. ATRIAL SEPTUM Normal atrial septal thickness without atrial level shunting by limited color doppler interrogation. AORTA The aortic root and proximal ascending aorta are normal in size on limited imaging. MITRAL VALVE Structurally normal mitral valve. No mitral valve stenosis or regurgitation. AORTIC VALVE Trileaflet aortic valve. Aortic valve sclerosis is present. Mild aortic valve stenosis. TRICUSPID VALVE Structurally normal tricuspid valve. There is trace tricuspid valve regurgitation. The estimated pulmonary arterial pressure is 36.6 mmHg. PULMONARY VALVE No pulmonary valve regurgitation or stenosis. VESSELS The inferior vena cava is normal in size. PERICARDIUM No pericardial effusion. Yoel Riley MD, FACC, FSCAI (Electronically Signed) Final Date:17 August 2017 18:47
[2017-08-18] VITALS (10 sets, daily range): BP systolic 132–156; BP diastolic 55–75; PULSE 79–86; RESP 19–21; TEMP 97.4–98.4; O2SAT 96–98
[2017-08-18] MEDS: ACETAMINOPHEN 325 MG TAB PO PRN ×3 (02:09→15:47)
[2017-08-18] MEDS: INSULIN ASPART SUPPLEMENTAL SCALE SQ SCH ×4 (08:00→21:00)
[2017-08-18 08:29] LABS: HEMATOCRIT 34.9 % (35.0-46.0); HEMOGLOBIN 11.7 GM/DL (11.6-15.3); MEAN CELL VOLUME 90.4 FL (80.0-100.0); MEAN CORPUSCULAR HEMOGLOBIN 30.5 PG (27.0-34.0); MEAN CORPUSCULAR HGB CONC 33.7 % (32.0-36.0); MEAN PLATELET VOLUME 8.2 FL (7.0-11.0); PLATELET COUNT 174 TH/MM3 (150-450); RED BLOOD COUNT 3.85 MIL/MM3 (4.00-5.30); WHITE BLOOD COUNT 6.6 TH/MM3 (4.0-11.0)
[2017-08-18 08:46] LABS: CALCIUM 8.3 MG/DL (8.5-10.1); CREATININE 1.01 MG/DL (0.50-1.00)
[2017-08-18] MEDS: PRAVASTATIN SOD 20 MG TAB PO SCH (10:01)
[2017-08-18] MEDS: FAMOTIDINE 20 MG TAB PO SCH (10:01)
[2017-08-18] MEDS: METOPROLOL SUCCINATE 25 MG EXTENDED RELEASE TAB PO SCH (10:01)
[2017-08-18] MEDS: FUROSEMIDE 40 MG TAB PO SCH (10:02)
[2017-08-18] MEDS: cefTRIAXone INJ 1,000 MG in SODIUM CHLORIDE 0.9% INJ 100 ML IV SCH (10:02)
[2017-08-18] MEDS: SODIUM CHLORIDE 0.9% FLUSH 10 ML FLUSH IV FLUSH SCH ×2 (10:02→21:50)
[2017-08-18] MEDS: NYSTATIN 100,000 U/GM PWD 15 GM BTL TOPICAL SCH ×2 (10:03→21:50)
[2017-08-18] MEDS: HEPARIN SODIUM - SQ 10,000 UNITS/ML VIAL SQ SCH ×2 (13:09→23:28)
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
--- NOTE | 2017-08-18 14:43 | HHI.PR ---
Subjective Remarks A new issues. Agreeable to SNF placement. Objective Vitals Vital Signs Date Time Temp Pulse Resp B/P (MAP) Pulse Ox O2 Delivery O2 Flow Rate FiO2 08/18/17 12:08 98.4 82 20 156/67 (96) 97 08/18/17 08:08 97.5 85 20 132/60 (84) 97 08/18/17 04:03 79 08/18/17 04:00 97.4 84 19 137/75 (95) 98 08/18/17 04:00 Room Air 08/18/17 00:13 86 08/18/17 00:00 97.4 86 19 140/61 (87) 98 08/18/17 00:00 Room Air 08/17/17 20:00 Room Air 08/17/17 20:00 98.1 85 19 145/63 (90) 97 08/17/17 19:59 88 08/17/17 17:43 Room Air 08/17/17 16:07 97.2 88 20 140/64 (89) 98 08/17/17 16:00 89 I/O 08/17/17 08/17/17 08/17/17 08/18/17 08/18/17 08/18/17 07:00 15:00 23:00 07:00 15:00 23:00 Intake Total 840 ml 650 ml Output Total 2500 ml 1500 ml Balance -1660 ml -850 ml Intake Oral 840 ml 650 ml Output Urine Total 2500 ml 1500 ml # Voids 3 # Bowel Movements 2 1 Result Diagram: 08/18/17 0720 08/18/17 0720 Procedures GENERAL: Morbidly obese female, easily tearful. CARDIOVASCULAR: Regular rate and rhythm without murmurs, gallops, or rubs. RESPIRATORY: Clear to auscultation. Breath sounds equal bilaterally. No wheezes , rales, or rhonchi. GASTROINTESTINAL: Abdomen soft, non-tender. No guarding. MUSCULOSKELETAL: Bilateral lower extremity with nonpitting edema NEUROLOGICAL: Awake and alert. Generalized weakness. A/P Problem List: (1) Chronic left shoulder pain ICD Code: M25.512 - Pain in left shoulder; G89.29 - Other chronic pain (2) Hypertension ICD Code: I10 - Essential (primary) hypertension (3) Diabetes ICD Code: E11.9 - Type 2 diabetes mellitus without complications (4) Sepsis secondary to UTI ICD Code: A41.9 - Sepsis, unspecified organism; N39.0 - Urinary tract infection , site not specified (5) Morbid obesity ICD Code: E66.01 - Morbid (severe) obesity due to excess calories (6) Rhabdomyolysis ICD Code: M62.82 - Rhabdomyolysis Status: Acute Assessment and Plan 67-year-old female admitted for sepsis secondary to UTI, debility. Sepsis secondary to UTI: - Urine grew Citrobacter Brakii. Pansensitive. Transition to oral Cefuroxime for 3 more days. DC Rocephin. . - Blood cultures so far negative. Reported history of CHF: Unknown type. - No overt respiratory symptoms or fluid overload - BNP normal, 2-D echocardiogram shows normal LVEF. - Continue metoprolol, Lasix Debility: - Likely secondary to morbid obesity and sepsis -Physical therapy following. Patient will need SNF placement Rhabdomyolysis: - Improving. Status post IV fluid. Patient is taking adequate oral hydration. IV fluid discontinued Hypertension: Continue home dose antihypertensives. Chronic left shoulder pain: Patient reports a history of rotator cuff tear. She is reporting worsening pain. Not allowing proper examination. Unclear if she injured her shoulder again. -X-ray negative for fractures. Advise outpatient follow-up with orthopedics regarding reported rotator cuff tear. - Pain control GI prophylaxis: Stool softener PRN constipation. DVT PPx: Heparin Discharge Planning Plan for DC to SNF tomorrow if remain stable. Problem Qualifiers (1) Rhabdomyolysis: Qualified Codes: M62.82 - Rhabdomyolysis Van Leon MD Aug 18, 2017 14:43
[2017-08-18] MEDS ORDERED: CEFU1TAB20 PO (14:46)
[2017-08-18] MEDS ORDERED: TRAM50TA PO (14:46)
[2017-08-18] MEDS: CEFUROXIME AXETIL 500 MG TAB PO SCH (21:50)
[2017-08-19] VITALS (11 sets, daily range): BP systolic 142–174; BP diastolic 65–82; PULSE 73–87; RESP 18–20; TEMP 97.3–98.4; O2SAT 94–98
[2017-08-19] MEDS: ACETAMINOPHEN 325 MG TAB PO PRN ×4 (00:55→21:57)
[2017-08-19] MEDS: SODIUM CHLORIDE 0.9% FLUSH 10 ML FLUSH IV FLUSH SCH ×2 (08:28→21:56)
[2017-08-19] MEDS: FUROSEMIDE 40 MG TAB PO SCH (08:30)
[2017-08-19] MEDS: CEFUROXIME AXETIL 500 MG TAB PO SCH ×2 (08:30→21:57)
[2017-08-19] MEDS: PRAVASTATIN SOD 20 MG TAB PO SCH (08:30)
[2017-08-19] MEDS: FAMOTIDINE 20 MG TAB PO SCH (08:31)
[2017-08-19] MEDS: METOPROLOL SUCCINATE 25 MG EXTENDED RELEASE TAB PO SCH (08:31)
[2017-08-19] MEDS: INSULIN ASPART SUPPLEMENTAL SCALE SQ SCH ×4 (08:32→21:56)
[2017-08-19] MEDS: NYSTATIN 100,000 U/GM PWD 15 GM BTL TOPICAL SCH ×2 (08:37→21:47)
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
[2017-08-19] MEDS: traMADol HCL 50 MG TAB PO PRN ×2 (12:06→19:10)
[2017-08-19] MEDS: HEPARIN SODIUM - SQ 10,000 UNITS/ML VIAL SQ SCH (12:08)
[2017-08-20] VITALS: BP 147/66; PULSE 76; RESP 18; TEMP 97.5; O2SAT 95
[2017-08-20] MEDS: traMADol HCL 50 MG TAB PO PRN ×2 (00:44→08:02)
[2017-08-20] MEDS: HEPARIN SODIUM - SQ 10,000 UNITS/ML VIAL SQ SCH ×2 (00:46→12:00)
[2017-08-20] MEDS: ACETAMINOPHEN 325 MG TAB PO PRN (03:31)
[2017-08-20 04:12] VITALS: PULSE 76
[2017-08-20 07:55] VITALS: PULSE 69
[2017-08-20] MEDS: SODIUM CHLORIDE 0.9% FLUSH 10 ML FLUSH IV FLUSH SCH (08:00)
[2017-08-20] MEDS: CEFUROXIME AXETIL 500 MG TAB PO SCH (08:00)
[2017-08-20] MEDS: METOPROLOL SUCCINATE 25 MG EXTENDED RELEASE TAB PO SCH (08:01)
[2017-08-20] MEDS: FUROSEMIDE 40 MG TAB PO SCH (08:01)
[2017-08-20] MEDS: PRAVASTATIN SOD 20 MG TAB PO SCH (08:02)
[2017-08-20] MEDS: FAMOTIDINE 20 MG TAB PO SCH (08:02)
[2017-08-20] MEDS: INSULIN ASPART SUPPLEMENTAL SCALE SQ SCH ×2 (08:03→12:00)
[2017-08-20] MEDS: NYSTATIN 100,000 U/GM PWD 15 GM BTL TOPICAL SCH (08:03)
[2017-08-20 08:18] VITALS: BP 153/65; PULSE 76; RESP 19; TEMP 98.2; O2SAT 94
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
[2017-08-20] MEDS ORDERED: traMADol HCL 50 MG TAB PO PRN (13:15)
[2017-08-20] MEDS ORDERED: LORazepam 0.5 MG TAB PO PRN (13:30)
[2017-08-20] MEDS ORDERED: LORazepam 2 MG/ML VIAL IM PRN ×2 (13:30)
[2017-08-20] MEDS ORDERED: LORazepam 1 MG TAB PO PRN (13:30)
[2017-08-20] MEDS ORDERED: ACETAMINOPHEN 325 MG TAB PO PRN (13:30)
[2017-08-20] MEDS ORDERED: glipiZIDE 5 MG TAB PO SCH (16:00)
[2017-08-20] MEDS ORDERED: OXYB5TAB8 PO (16:31)
[2017-08-20] MEDS ORDERED: COUM5TAB PO (16:33)
[2017-08-20] MEDS ORDERED: CYCL5TAB PO (16:33)
[2017-08-20] MEDS ORDERED: COUM2TAB PO (16:33)
== END 2017-08-20 12:40 | DRG 872 ==
LOC: NEPD 16:29 → NEDA 23:04 → NEDH 08-16 01:21 → N04B 08-16 02:51
PROVIDERS: ADMIT Family Medicine; ATTEND Family Medicine
DX: A41.59 Other Gram-negative sepsis (principal); M62.82 Rhabdomyolysis; D68.59 Other primary thrombophilia; I11.0 Hypertensive heart disease with heart failure; I50.9 Heart failure, unspecified; Z68.42 Body mass index [BMI] 45.0-49.9, adult; F31.64 Bipolar disorder, current episode mixed, severe, with psychotic features; N39.0 Urinary tract infection, site not specified; E66.01 Morbid (severe) obesity due to excess calories; E11.9 Type 2 diabetes mellitus without complications; M75.102 Unspecified rotator cuff tear or rupture of left shoulder, not specified as traumatic; Z79.01 Long term (current) use of anticoagulants; Z79.84 Long term (current) use of oral hypoglycemic drugs; Z88.5 Allergy status to narcotic agent; R55 Syncope and collapse; R94.31 Abnormal electrocardiogram [ECG] [EKG]; R53.81 Other malaise
CPT/HCPCS: 70450; 71045; 73030; 80048; 80053; 81001; 82550; 82552; 82948; 83605; 83735; 83880; 84484; 85025; 85027; 85610; 85730; 87040; 87077; 87086; 87186; 93005; 93306; 96360; J0692; J0696; J1644; J1815; J2405; J3370; J7030; J7040; J7050

== ENCOUNTER 2017-08-20 10:12 | Inpatient (IN) | payer OTHER, MEDICARE ==
[~2017-08-20 10:12] MED LIST changes: +CEFU1TAB20 PO; -CIPR-9 PO
[2017-08-20 13:00] VITALS: BP 145/64; PULSE 73; RESP 18; TEMP 98.3; O2SAT 98
[2017-08-20] MEDS: traMADol HCL 50 MG TAB PO PRN (14:54)
[2017-08-20] MEDS: FUROSEMIDE 40 MG TAB PO SCH (14:59)
[2017-08-20] MEDS ORDERED: OXYB5TAB8 PO (16:31)
[2017-08-20] MEDS ORDERED: COUM2TAB PO (16:33)
[2017-08-20] MEDS ORDERED: CYCL5TAB PO (16:33)
[2017-08-20] MEDS ORDERED: COUM5TAB PO (16:33)
[2017-08-20] MEDS ORDERED: WARFARIN SOD 5 MG TAB PO SCH (17:00)
[2017-08-20 18:31] VITALS: BP 144/65; PULSE 75; RESP 18; TEMP 97.6; O2SAT 99
[2017-08-20 18:32] VITALS: BP 144/65; PULSE 75; RESP 18; TEMP 97.6; O2SAT 99
[2017-08-20] MEDS: CYCLOBENZAPRINE HCL 10 MG TAB PO PRN (18:40)
[2017-08-20] MEDS: glipiZIDE 5 MG TAB PO SCH (18:41)
[2017-08-20] MEDS: OXYBUTYNIN CHLORIDE 5 MG TAB PO SCH (21:48)
[2017-08-20] MEDS: CEFUROXIME AXETIL 500 MG TAB PO SCH (21:49)
[2017-08-20] MEDS: WARFARIN SOD 6 MG TAB PO SCH (21:49)
[2017-08-20] MEDS: FAMOTIDINE 20 MG TAB PO SCH (21:49)
[2017-08-21] MEDS: traMADol HCL 50 MG TAB PO PRN ×3 (03:17→20:12)
[2017-08-21] MEDS: glipiZIDE 5 MG TAB PO SCH ×2 (06:03→16:09)
[2017-08-21] MEDS: CYCLOBENZAPRINE HCL 10 MG TAB PO PRN ×2 (06:07→14:24)
[2017-08-21 07:09] VITALS: BP 140/65; PULSE 96; RESP 18; TEMP 97.7; O2SAT 96
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
[2017-08-21] MEDS: OXYBUTYNIN CHLORIDE 5 MG TAB PO SCH ×2 (09:00→20:11)
[2017-08-21] MEDS ORDERED: GLUCAGON 1 MG/ML VIAL OTHER PRN (09:00)
[2017-08-21] MEDS ORDERED: DEXTROSE 50% IN WATER 50 ML VIAL(D50) IV PUSH PRN (09:00)
[2017-08-21] MEDS: PRAVASTATIN SOD 20 MG TAB PO SCH (09:38)
[2017-08-21] MEDS: FAMOTIDINE 20 MG TAB PO SCH ×2 (09:38→20:11)
[2017-08-21] MEDS: METOPROLOL SUCCINATE 25 MG EXTENDED RELEASE TAB PO SCH (09:39)
[2017-08-21] MEDS: CEFUROXIME AXETIL 500 MG TAB PO SCH ×2 (09:39→20:08)
[2017-08-21] MEDS: FUROSEMIDE 40 MG TAB PO SCH (09:39)
[2017-08-21 10:57] LABS: PROTHROMBIN TIME - PATIENT 9.9 SEC (9.8-11.6)
[2017-08-21] MEDS: ACETAMINOPHEN 325 MG TAB PO PRN ×2 (11:35→20:10)
[2017-08-21] MEDS: INSULIN ASPART SUPPLEMENTAL SCALE SQ SCH ×3 (12:00→20:11)
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
[2017-08-21] MEDS: WARFARIN SOD 6 MG TAB PO SCH (16:09)
[2017-08-21 18:00] VITALS: BP 165/72; PULSE 70; RESP 16; TEMP 97.5; O2SAT 99
[2017-08-21] MEDS ORDERED: MAGNESIUM HYDROXIDE SUSP 30 ML CUP PO PRN (18:45)
[2017-08-21] MEDS ORDERED: SENNOSIDES 8.6 MG TAB PO PRN (18:45)
[2017-08-21] MEDS ORDERED: BISACODYL 10 MG SUPP RECTAL PRN (18:45)
[2017-08-21] MEDS ORDERED: LACTULOSE SYRUP 20 GM/30 ML CUP PO PRN (18:45)
[2017-08-21] MEDS: DOCUSATE SODIUM 50 MG/SENNA 8.6 MG TAB PO SCH (20:09)
[2017-08-21] MEDS: QUEtiapine FUMARATE 25 MG TAB PO SCH (20:10)
[2017-08-22] MEDS: CYCLOBENZAPRINE HCL 10 MG TAB PO PRN ×3 (00:16→21:46)
[2017-08-22] MEDS: ACETAMINOPHEN 325 MG TAB PO PRN ×2 (02:21→11:00)
[2017-08-22] MEDS: traMADol HCL 50 MG TAB PO PRN ×4 (02:21→21:47)
[2017-08-22 06:12] VITALS: BP 152/66; PULSE 70; RESP 20; TEMP 97.4; O2SAT 96
[2017-08-22] MEDS: glipiZIDE 5 MG TAB PO SCH ×2 (06:26→15:07)
[2017-08-22] MEDS: INSULIN ASPART SUPPLEMENTAL SCALE SQ SCH ×4 (08:00→21:55)
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
[2017-08-22] MEDS: FAMOTIDINE 20 MG TAB PO SCH ×2 (09:03→21:47)
[2017-08-22] MEDS: OXYBUTYNIN CHLORIDE 5 MG TAB PO SCH ×2 (09:03→21:46)
[2017-08-22] MEDS: DOCUSATE SODIUM 50 MG/SENNA 8.6 MG TAB PO SCH ×2 (09:04→21:47)
[2017-08-22] MEDS: CEFUROXIME AXETIL 500 MG TAB PO SCH (09:04)
[2017-08-22] MEDS: METOPROLOL SUCCINATE 25 MG EXTENDED RELEASE TAB PO SCH (09:05)
[2017-08-22] MEDS: PRAVASTATIN SOD 20 MG TAB PO SCH (09:05)
[2017-08-22] MEDS: FUROSEMIDE 40 MG TAB PO SCH (09:06)
[2017-08-22] MEDS: QUEtiapine FUMARATE 25 MG TAB PO SCH ×2 (09:07→21:47)
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
[2017-08-22] MEDS ORDERED: WARFARIN SOD 4 MG TAB PO ONE (10:15)
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
[2017-08-22 13:40] LABS: INTERNATIONAL NORMALIZED RATIO 1.1 RATIO; PROTHROMBIN TIME - PATIENT 11.3 SEC (9.8-11.6)
[2017-08-22] MEDS: WARFARIN SOD 6 MG TAB PO SCH (15:07)
[2017-08-22 18:00] VITALS: BP 121/81; PULSE 79; RESP 19; TEMP 97.5; O2SAT 95
[2017-08-23] MEDS: traMADol HCL 50 MG TAB PO PRN ×4 (03:33→22:41)
[2017-08-23 06:00] VITALS: BP 145/64; PULSE 65; RESP 16; TEMP 97.6; O2SAT 96
[2017-08-23 06:10] LABS: INTERNATIONAL NORMALIZED RATIO 1.2 RATIO; PROTHROMBIN TIME - PATIENT 12.4 SEC (9.8-11.6)
[2017-08-23] MEDS: glipiZIDE 5 MG TAB PO SCH ×2 (06:12→17:08)
[2017-08-23] MEDS: INSULIN ASPART SUPPLEMENTAL SCALE SQ SCH ×4 (08:00→21:00)
--- NOTE | 2017-08-23 10:01 | HHI.PR ---
Subjective Remarks No acute events overnight. Afebrile, vital signs stable. Patient with no complaints at this time. States she would like to be discharged to rehabilitation. Does not understand why she is in the psychiatry unit. Objective Vitals Vital Signs Date Time Temp Pulse Resp B/P (MAP) Pulse Ox O2 Delivery O2 Flow Rate FiO2 08/23/17 06:00 97.6 65 16 145/64 (91) 96 08/22/17 18:00 97.5 79 19 121/81 (94) 95 I/O 08/22/17 08/22/17 08/22/17 08/23/17 08/23/17 08/23/17 07:00 15:00 23:00 07:00 15:00 23:00 Intake Total 2040 ml 1580 ml 370 ml Balance 2040 ml 1580 ml 370 ml Intake Oral 2040 ml 1580 ml 370 ml # Voids 3 1 10 2 # Bowel Movements 1 Objective Remarks GENERAL: This is a well-nourished, obese, well-developed patient, in no apparent distress. Neck: Full range of motion. CARDIOVASCULAR: Regular rate and rhythm RESPIRATORY: Clear to auscultation. Breath sounds equal bilaterally. No wheezes , rales, or rhonchi. GASTROINTESTINAL: Abdomen soft, non-tender, nondistended. Normal active bowel sounds MUSCULOSKELETAL: Extremities without clubbing, cyanosis, or edema. NEURO: Alert & Oriented x4 to person, place, time, situation. Moves all ext x4 A/P Problem List: (1) Bipolar disorder, current episode mixed, severe, with psychotic features ICD Code: F31.64 - Bipolar disorder, current episode mixed, severe, with psychotic features Status: Acute (2) Morbid obesity ICD Code: E66.01 - Morbid (severe) obesity due to excess calories Status: Chronic (3) Hypertension ICD Code: I10 - Essential (primary) hypertension Status: Chronic Assessment and Plan 1. Acute bipolar disorder with psychotic features- continue treatment per psychiatry 2. Recent sepsis with UTI urine cultures with Citrobacter during previous inpatient admission, - now resolved; completed course of Ceftin 3. History of diastolic CHF, this is stable and no signs of acute exacerbation - continue with Lasix, metoprolol 4. History of hyperlipidemia- resume home statin 5. History of chronic left shoulder pain and lower back pain- continue with home tramadol as needed. Flexeril for spasms as needed 6. History of diabetes mellitus type 2 continue to monitor blood sugar levels with insulin sliding scale coverage. Last received 1 unit yesterday evening. 7. Morbid obesity, chronic - weight loss counseling provided, encourage ambulation. 8. Likely previous history of DVT-restarted home Coumadin 08/21. Monitor INR. 1.2 today Discharge Planning Pending therapeutic INR Kassie Serrano MD Aug 23, 2017 10:01
[2017-08-23] MEDS: FAMOTIDINE 20 MG TAB PO SCH ×2 (10:15→22:43)
[2017-08-23] MEDS: FUROSEMIDE 40 MG TAB PO SCH (10:15)
[2017-08-23] MEDS: CYCLOBENZAPRINE HCL 10 MG TAB PO PRN ×2 (10:15→22:42)
[2017-08-23] MEDS: PRAVASTATIN SOD 20 MG TAB PO SCH (10:16)
[2017-08-23] MEDS: METOPROLOL SUCCINATE 25 MG EXTENDED RELEASE TAB PO SCH (10:16)
[2017-08-23] MEDS: OXYBUTYNIN CHLORIDE 5 MG TAB PO SCH ×2 (10:16→22:41)
[2017-08-23] MEDS: DOCUSATE SODIUM 50 MG/SENNA 8.6 MG TAB PO SCH ×2 (10:18→22:43)
[2017-08-23] MEDS: QUEtiapine FUMARATE 25 MG TAB PO SCH (10:18)
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
[2017-08-23 16:49] VITALS: BP 131/68; PULSE 72; RESP 18; TEMP 97.1; O2SAT 95
[2017-08-23] MEDS: WARFARIN SOD 6 MG TAB PO SCH (17:08)
[2017-08-23] MEDS: QUEtiapine FUMARATE 100 MG TAB PO SCH (22:42)
[2017-08-24 06:51] VITALS: BP 129/65; PULSE 69; RESP 18; TEMP 98.1; O2SAT 90
[2017-08-24] MEDS: glipiZIDE 5 MG TAB PO SCH ×2 (07:00→16:06)
[2017-08-24] MEDS: INSULIN ASPART SUPPLEMENTAL SCALE SQ SCH ×5 (07:42→21:00)
[2017-08-24] MEDS: FUROSEMIDE 40 MG TAB PO SCH (07:53)
[2017-08-24] MEDS: traMADol HCL 50 MG TAB PO PRN ×2 (07:54→21:39)
[2017-08-24] MEDS: METOPROLOL SUCCINATE 25 MG EXTENDED RELEASE TAB PO SCH (07:54)
[2017-08-24] MEDS: FAMOTIDINE 20 MG TAB PO SCH ×2 (07:54→21:38)
[2017-08-24] MEDS: OXYBUTYNIN CHLORIDE 5 MG TAB PO SCH ×2 (07:54→21:39)
[2017-08-24] MEDS: PRAVASTATIN SOD 20 MG TAB PO SCH (07:54)
[2017-08-24] MEDS: DOCUSATE SODIUM 50 MG/SENNA 8.6 MG TAB PO SCH ×2 (07:54→21:39)
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
[2017-08-24 10:54] LABS: INTERNATIONAL NORMALIZED RATIO 1.8 RATIO; PROTHROMBIN TIME - PATIENT 18.7 SEC (9.8-11.6)
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
[2017-08-24] MEDS: WARFARIN SOD 3 MG TAB PO SCH (16:06)
[2017-08-24] MEDS: QUEtiapine FUMARATE 100 MG TAB PO SCH (21:00)
[2017-08-24] MEDS: CYCLOBENZAPRINE HCL 10 MG TAB PO PRN (21:39)
[2017-08-25 06:00] VITALS: BP 160/72; PULSE 62; RESP 17; TEMP 98; O2SAT 95
[2017-08-25] MEDS: glipiZIDE 5 MG TAB PO SCH ×2 (06:20→16:40)
[2017-08-25 07:53] LABS: INTERNATIONAL NORMALIZED RATIO 2.1 RATIO
[2017-08-25] MEDS: INSULIN ASPART SUPPLEMENTAL SCALE SQ SCH ×4 (08:00→20:57)
[2017-08-25] MEDS: DOCUSATE SODIUM 50 MG/SENNA 8.6 MG TAB PO SCH ×2 (09:42→20:57)
[2017-08-25] MEDS: METOPROLOL SUCCINATE 25 MG EXTENDED RELEASE TAB PO SCH (09:42)
[2017-08-25] MEDS: OXYBUTYNIN CHLORIDE 5 MG TAB PO SCH ×2 (09:42→20:56)
[2017-08-25] MEDS: PRAVASTATIN SOD 20 MG TAB PO SCH (09:42)
[2017-08-25] MEDS: FUROSEMIDE 40 MG TAB PO SCH (09:43)
[2017-08-25] MEDS: traMADol HCL 50 MG TAB PO PRN ×2 (09:43→16:40)
[2017-08-25] MEDS: FAMOTIDINE 20 MG TAB PO SCH ×2 (09:43→20:56)
[2017-08-25] MEDS: CYCLOBENZAPRINE HCL 10 MG TAB PO PRN ×2 (09:44→16:40)
--- NOTE | 2017-08-25 10:17 | HHI.PYPN ---
Subjective Remarks Patient seen for follow-up, chart reviewed. Discussion she staff reported the patient continues to report having left shoulder pain but is receiving analgesics and muscle relaxant on a scheduled basis. Patient found asleep was able to wake up for interview. Patient states that she feels good but week. Patient reports her mood has been good, denies any suicidal ideations and noted to be more organized thought process today and less pressured speech. Patient agreed to continue to be compliant to her medications that she had refused her Seroquel last evening. Patient states she would like to go to a rehabilitation facility postdischarge and she states needs to be able to get physically stronger. Review of Systems Except as stated in HPI: all other systems reviewed are Neg Mental Status Examination Appearance: Appropriate Consciousness: Alert Orientation: x4 Motor Activity: Abnormal gait Speech: Pressured (slightly today) Language: Adequate Fund of Knowledge: Adequate Attention and Concentration: Adequate Memory: Impaired Mood: Appropriate Affect: Appropriate Thought Process & Associations: Linear Thought Content: Delusional Hallucination Type: Auditory (denies today) Delusion Type: Paranoid Suicidal Ideation: No Suicidal Plan: No Suicidal Intention: No Homicidal Ideation: No Homicidal Plan: No Homicidal Intention: No Insight: Poor Judgment: Poor Results Labs Test 08/25/17 07:20 Prothrombin Time 21.0 SEC Prothromb Time International Ratio 2.1 RATIO Vitals/IOs Vital Signs Date Time Temp Pulse Resp B/P (MAP) Pulse Ox O2 Delivery O2 Flow Rate FiO2 08/25/17 06:00 98.0 62 17 160/72 (101) 95 Intake and Output 08/25/17 08/25/17 08/26/17 08:00 16:00 00:00 Intake Total 840 ml Balance 840 ml Assessment & Plan Problem List: (1) Bipolar disorder, current episode mixed, severe, with psychotic features ICD Codes: F31.64 - Bipolar disorder, current episode mixed, severe, with psychotic features Status: Acute (2) Unspecified psychosis ICD Codes: F29 - Unspecified psychosis not due to a substance or known physiological condition Assessment & Plan Patient at this time noted to have less pressured speech, noted to be more organized thought process with the tangentiality. Patient reports feeling good with denying any suicidal ideations. Continue current treatment for now. Continue to encourage patient to maintain compliance with treatment. Patient to continue with physical therapy. Discharge planning in progress Justification for Cont. Inpt. At risk for further decompensation if at lower level of care Discharge Planning Possibly to be [facility] Arvizu MD Aug 25, 2017 10:17
--- NOTE | 2017-08-25 13:58 | HHI.PR ---
Subjective Remarks No acute events overnight. Afebrile. Hypertensive this morning to 160/72. Patient remains agitated and wishes to go home. Objective Vitals Vital Signs Date Time Temp Pulse Resp B/P (MAP) Pulse Ox O2 Delivery O2 Flow Rate FiO2 08/25/17 06:00 98.0 62 17 160/72 (101) 95 I/O 08/24/17 08/24/17 08/24/17 08/25/17 08/25/17 08/25/17 07:00 15:00 23:00 07:00 15:00 23:00 Intake Total 360 ml 720 ml 480 ml 600 ml Output Total 500 ml Balance -500 ml 360 ml 720 ml 480 ml 600 ml Intake Oral 360 ml 720 ml 480 ml 600 ml Output Urine Total 500 ml # Voids 2 2 Objective Remarks GENERAL: This is a well-nourished, obese, well-developed patient, in no apparent distress. Neck: Full range of motion. CARDIOVASCULAR: Regular rate and rhythm RESPIRATORY: Clear to auscultation. Breath sounds equal bilaterally. No wheezes , rales, or rhonchi. GASTROINTESTINAL: Abdomen soft, non-tender, nondistended. Normal active bowel sounds MUSCULOSKELETAL: Extremities without clubbing, cyanosis, or edema. NEURO: Alert & Oriented x4 to person, place, time, situation. Moves all ext x4 A/P Problem List: (1) Bipolar disorder, current episode mixed, severe, with psychotic features ICD Code: F31.64 - Bipolar disorder, current episode mixed, severe, with psychotic features Status: Acute (2) Morbid obesity ICD Code: E66.01 - Morbid (severe) obesity due to excess calories Status: Chronic (3) Hypertension ICD Code: I10 - Essential (primary) hypertension Status: Chronic Assessment and Plan 1. Acute bipolar disorder with psychotic features- continue treatment per psychiatry 2. Recent sepsis with UTI urine cultures with Citrobacter during previous inpatient admission, - now resolved; completed course of Ceftin 3. History of diastolic CHF, this is stable and no signs of acute exacerbation - continue with Lasix, metoprolol 4. History of hyperlipidemia- resume home statin 5. History of chronic left shoulder pain and lower back pain- continue with home tramadol as needed. Flexeril for spasms as needed 6. History of diabetes mellitus type 2 continue to monitor blood sugar levels with insulin sliding scale coverage. BG well controlled without insulin. 7. Morbid obesity, chronic - weight loss counseling provided, encourage ambulation. 8. Likely previous history of DVT-restarted home Coumadin 08/21. INR therapeutic. 9. Hypertension - intermittent. BP 160/72 this morning, repeat this afternoon 139/78. May be secondary to patient's agitation. Monitor. Discharge Planning Pending therapeutic INR Kassie Serrano MD Aug 25, 2017 13:58
[2017-08-25] MEDS: WARFARIN SOD 3 MG TAB PO SCH (16:40)
[2017-08-25 18:44] VITALS: BP 136/63; PULSE 69; RESP 18; TEMP 98; O2SAT 95
[2017-08-25] MEDS: QUEtiapine FUMARATE 100 MG TAB PO SCH (20:56)
[2017-08-26] MEDS: glipiZIDE 5 MG TAB PO SCH ×2 (06:37→17:28)
[2017-08-26 06:47] VITALS: BP 135/63; PULSE 71; RESP 17; TEMP 98.2; O2SAT 71
[2017-08-26 07:53] LABS: INTERNATIONAL NORMALIZED RATIO 2.2 RATIO; PROTHROMBIN TIME - PATIENT 22.1 SEC (9.8-11.6)
[2017-08-26] MEDS: INSULIN ASPART SUPPLEMENTAL SCALE SQ SCH ×4 (08:00→20:53)
--- NOTE | 2017-08-26 08:56 | HHI.PYPN ---
Subjective Remarks Patient seen for follow-up, chart review. Discussion she staff reported the patient had refused [place] last evening stating that had made her too sleepy in the morning but took the rest of her medications. Patient was found lying in hospital bed somewhat somnolent but was able to wake up to interact with interview today. Patient states that she does not take [place] last evening because she felt that it would make her too sleepy in the morning but was encouraged to continue to maintain compliance which she agreed to. Patient states that her mood as "good", reports that she has a son nearby for support but had not come in contact with him since her admission. She states that the rest of her family cannot be counted on. Patient states that she is ready to be discharged to a rehabilitation program and subsequently back to her home. Patient denies any SI, HI, perceptual disturbances or delusions at this time. Review of Systems Except as stated in HPI: all other systems reviewed are Neg Mental Status Examination Appearance: Appropriate Consciousness: Alert Orientation: x4 Motor Activity: Abnormal gait Speech: Unremarkable Language: Adequate Fund of Knowledge: Adequate Attention and Concentration: Adequate Memory: Impaired Mood: Appropriate Affect: Appropriate Thought Process & Associations: Goal directed, Linear Thought Content: Appropriate Hallucination Type: None Suicidal Ideation: No Suicidal Plan: No Suicidal Intention: No Homicidal Ideation: No Homicidal Plan: No Homicidal Intention: No Insight: Fair Judgment: Impulsive Results Labs Test 08/26/17 07:25 Prothrombin Time 22.1 SEC Prothromb Time International Ratio 2.2 RATIO Vitals/IOs Vital Signs Date Time Temp Pulse Resp B/P (MAP) Pulse Ox O2 Delivery O2 Flow Rate FiO2 08/26/17 06:47 98.2 71 17 135/63 (87) 71 Intake and Output 08/26/17 08/26/17 08/27/17 08:00 16:00 00:00 Intake Total 480 ml Balance 480 ml Assessment & Plan Problem List: (1) Bipolar disorder, current episode mixed, severe, with psychotic features ICD Codes: F31.64 - Bipolar disorder, current episode mixed, severe, with psychotic features Status: Acute (2) Unspecified psychosis ICD Codes: F29 - Unspecified psychosis not due to a substance or known physiological condition Assessment & Plan She at this time noted to be more linear, less tangential no pressured speech, more organized thought process. No delusional material elicited today. Patient did refuse medications last seen but was provided with psychoeducation on importance of medication compliance which she agreed to. Continue current treatment. We'll attempt to contact son which may be her only support system as well as consideration for possible discharge to rehabilitation program. Discharge planning in progress Justification for Cont. Inpt. At risk for further decompensation if at lower level of care Discharge Planning To physical rehabilitation West Arvizu MD Aug 26, 2017 08:56
[2017-08-26] MEDS: FAMOTIDINE 20 MG TAB PO SCH ×2 (10:23→20:53)
[2017-08-26] MEDS: DOCUSATE SODIUM 50 MG/SENNA 8.6 MG TAB PO SCH ×2 (10:23→20:53)
[2017-08-26] MEDS: PRAVASTATIN SOD 20 MG TAB PO SCH (10:23)
[2017-08-26] MEDS: FUROSEMIDE 40 MG TAB PO SCH (10:23)
[2017-08-26] MEDS: METOPROLOL SUCCINATE 25 MG EXTENDED RELEASE TAB PO SCH (10:23)
[2017-08-26] MEDS: OXYBUTYNIN CHLORIDE 5 MG TAB PO SCH ×2 (10:23→20:53)
--- NOTE | 2017-08-26 10:38 | HHI.PR ---
Subjective Remarks Patient seen and examined Complains of shoulder pain otherwise stable No acute event overnight and currently afebrile Objective Vitals Vital Signs Date Time Temp Pulse Resp B/P (MAP) Pulse Ox O2 Delivery O2 Flow Rate FiO2 08/26/17 06:47 98.2 71 17 135/63 (87) 71 08/25/17 18:44 98.0 69 18 136/63 (87) 95 I/O 08/25/17 08/25/17 08/25/17 08/26/17 08/26/17 08/26/17 06:59 14:59 22:59 06:59 14:59 22:59 Intake Total 480 ml 600 ml 1320 ml 480 ml Output Total 1350 ml Balance 480 ml -750 ml 1320 ml 480 ml Intake Oral 480 ml 600 ml 1320 ml 480 ml Output Urine Total 1350 ml # Voids 2 2 3 4 # Bowel Movements 1 Objective Remarks GENERAL: NAD SKIN: Warm and dry. HEAD: Normocephalic. EYES: No scleral icterus. No injection or drainage. NECK: Supple, trachea midline. No JVD or lymphadenopathy. CARDIOVASCULAR: Regular rate and rhythm without murmurs, gallops, or rubs. RESPIRATORY: Breath sounds equal bilaterally. No accessory muscle use. GASTROINTESTINAL: Abdomen soft, non-tender, nondistended. MUSCULOSKELETAL: No cyanosis, or edema. BACK: Nontender without obvious deformity. No CVA tenderness. A/P Problem List: (1) Bipolar disorder, current episode mixed, severe, with psychotic features ICD Code: F31.64 - Bipolar disorder, current episode mixed, severe, with psychotic features Status: Acute (2) Morbid obesity ICD Code: E66.01 - Morbid (severe) obesity due to excess calories Status: Chronic (3) Hypertension ICD Code: I10 - Essential (primary) hypertension Status: Chronic Assessment and Plan 67-year-old female with 1. Acute bipolar disorder with psychotic features- continue treatment per psychiatry 2. Recent sepsis with UTI urine cultures with Citrobacter: completed course of Ceftin 3. History of diastolic CHF:continue with Lasix, metoprolol 4. History of hyperlipidemia- continue home statin 5. History of chronic left shoulder pain and lower back pain- continue with home tramadol as needed. Flexeril for spasms as needed 6. History of diabetes mellitus type 2 :continue to monitor blood sugar levels with insulin sliding scale coverage. 7. Morbid obesity, chronic - weight loss counseling provided, encourage ambulation. 8. Likely previous history of DVT-continue home Coumadin 08/21. INR therapeutic. 9. Hypertension -normotensive on Toprol-XL 25 mg daily H will sign off as patient is medically stable for discharge West Dailey MD Aug 26, 2017 10:38
[2017-08-26] MEDS: CYCLOBENZAPRINE HCL 10 MG TAB PO PRN (15:44)
[2017-08-26] MEDS: traMADol HCL 50 MG TAB PO PRN (15:45)
[2017-08-26] MEDS: WARFARIN SOD 3 MG TAB PO SCH (17:28)
[2017-08-26 18:02] VITALS: BP 114/59; PULSE 69; RESP 18; TEMP 97.7; O2SAT 96
[2017-08-26] MEDS: QUEtiapine FUMARATE 100 MG TAB PO SCH (20:53)
[2017-08-27 05:45] VITALS: BP 126/59; PULSE 73; RESP 17; TEMP 97.8; O2SAT 94
[2017-08-27] MEDS: glipiZIDE 5 MG TAB PO SCH ×2 (06:29→16:00)
[2017-08-27] MEDS: INSULIN ASPART SUPPLEMENTAL SCALE SQ SCH ×4 (08:00→21:00)
[2017-08-27 08:56] LABS: INTERNATIONAL NORMALIZED RATIO 2.1 RATIO; PROTHROMBIN TIME - PATIENT 21.2 SEC (9.8-11.6)
[2017-08-27] MEDS: DOCUSATE SODIUM 50 MG/SENNA 8.6 MG TAB PO SCH ×2 (09:04→20:45)
[2017-08-27] MEDS: OXYBUTYNIN CHLORIDE 5 MG TAB PO SCH ×2 (09:04→20:45)
[2017-08-27] MEDS: PRAVASTATIN SOD 20 MG TAB PO SCH (09:04)
[2017-08-27] MEDS: METOPROLOL SUCCINATE 25 MG EXTENDED RELEASE TAB PO SCH (09:05)
[2017-08-27] MEDS: FUROSEMIDE 40 MG TAB PO SCH (09:05)
[2017-08-27] MEDS: FAMOTIDINE 20 MG TAB PO SCH ×2 (09:05→20:45)
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
[2017-08-27] MEDS ORDERED: PILL SPLITTER OTHER PRN (11:45)
[2017-08-27] MEDS: WARFARIN SOD 4 MG TAB PO SCH (16:00)
[2017-08-27 18:47] VITALS: BP 129/63; PULSE 69; RESP 16; TEMP 97.6; O2SAT 94
[2017-08-27] MEDS: QUEtiapine FUMARATE 100 MG TAB PO SCH ×2 (20:50→21:29)
[2017-08-28 05:16] VITALS: BP 150/64; PULSE 69; RESP 17; TEMP 98.2; O2SAT 94
[2017-08-28] MEDS: glipiZIDE 5 MG TAB PO SCH ×2 (07:00→16:00)
[2017-08-28] MEDS: INSULIN ASPART SUPPLEMENTAL SCALE SQ SCH ×2 (08:00→12:00)
[2017-08-28] MEDS: FUROSEMIDE 40 MG TAB PO SCH (09:00)
[2017-08-28] MEDS: FAMOTIDINE 20 MG TAB PO SCH (09:12)
[2017-08-28] MEDS: METOPROLOL SUCCINATE 25 MG EXTENDED RELEASE TAB PO SCH (09:12)
[2017-08-28] MEDS: PRAVASTATIN SOD 20 MG TAB PO SCH (09:12)
[2017-08-28] MEDS: DOCUSATE SODIUM 50 MG/SENNA 8.6 MG TAB PO SCH (09:12)
[2017-08-28] MEDS: OXYBUTYNIN CHLORIDE 5 MG TAB PO SCH (09:12)
[2017-08-28 09:55] LABS: INTERNATIONAL NORMALIZED RATIO 2.1 RATIO; PROTHROMBIN TIME - PATIENT 20.8 SEC (9.8-11.6)
[2017-08-28] MEDS ORDERED: QUET1TAB8 PO (12:13)
[2017-08-28] MEDS ORDERED: PRAV20TA PO (12:13)
[2017-08-28] MEDS ORDERED: FURO1TAB60 PO (12:13)
[2017-08-28] MEDS ORDERED: METO1TAB42 PO (12:13)
[2017-08-28] MEDS ORDERED: GLIP5TAB8 PO (12:13)
[2017-08-28] MEDS ORDERED: ZANT150T2 PO (12:13)
[2017-08-28] MEDS ORDERED: OXYB5TAB8 PO (12:13)
[2017-08-28] MEDS ORDERED: COUM4TAB PO (12:13)
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
[2017-08-28] MEDS: CYCLOBENZAPRINE HCL 10 MG TAB PO PRN (12:29)
[2017-08-28] MEDS: traMADol HCL 50 MG TAB PO PRN (12:29)
[2017-08-28] MEDS: WARFARIN SOD 4 MG TAB PO SCH (16:00)
== END 2017-08-28 18:32 | disposition home or self-care (01) | DRG 885 ==
LOC: H4EA 12:50
PROVIDERS: ADMIT Psychiatry & Neurology Psychiatry; ATTEND Psychiatry & Neurology Psychiatry
DX: F31.64 Bipolar disorder, current episode mixed, severe, with psychotic features (principal); I11.0 Hypertensive heart disease with heart failure; I50.32 Chronic diastolic (congestive) heart failure; E11.9 Type 2 diabetes mellitus without complications; K21.9 Gastro-esophageal reflux disease without esophagitis; E66.01 Morbid (severe) obesity due to excess calories; E78.5 Hyperlipidemia, unspecified; J45.909 Unspecified asthma, uncomplicated; G89.29 Other chronic pain; M25.512 Pain in left shoulder; M54.5 Low back pain; Z79.84 Long term (current) use of oral hypoglycemic drugs; Z86.718 Personal history of other venous thrombosis and embolism
CPT/HCPCS: 82948; 85610; J1815